=== PATIENT | female | born 1960 | race American Indian/Alaskan Native ===

== ENCOUNTER 2020-01-22 21:58 | Emergency (ER) | payer MEDICAID ==
--- NOTE | 2020-01-22 22:30 | Event Note ---
ED Screening Note Date of service: 01/22/20 Time: 22:26 ED Screening Note: This is a 59 y.o. F. that presents to the ER with right ankle pain. Patient states she twisted her ankle in her driveway while getting out of her car. Reports pain to lateral ankle when she attempt to apply weight. PMH of asthma, DM2 insulin dependent, & HTN This initial assessment/diagnostic orders/clinical plan/treatment(s) is/are subject to change based on patients health status, clinical progression and re-assessment by fellow clinical providers in the ED. Further treatment and workup at subsequent clinical providers discretion. Patient/guardian urged not to elope from the ED as their condition may be serious if not clinically assessed and managed. Initial orders include: XR right ankle
--- NOTE | 2020-01-22 23:00 | XRay Report ---
RIGHT ANKLE 3 VIEWS INDICATION: pain s/p fall, r/o fx. COMPARISON: No relevant prior imaging study available. FINDINGS: There is a minimally displaced fracture at the base of the fifth metatarsal. No additional fractures are identified. There is mild soft tissue swelling adjacent to the fracture. There is mild osteoarthr osis. IMPRESSION: 1. Minimally displaced fracture at the base of the fifth metatarsal. Signer Name: Aleks Toure MD Signed: 01/22/2020 10:55 PM Workstation Name: [id number]
--- NOTE | 2020-01-22 23:20 | Emergency Department Report ---
ED Lower Extremity HPI - General Chief Complaint: Extremity Injury, Lower Stated Complaint: FALL INJURY RT ANKLE Time Seen by Provider: 01/22/20 22:26 Source: patient Mode of arrival: Wheelchair Limitations: Physical Limitation - History of Present Illness Initial Comments: 59-year-old female was getting out of her truck on wet grass with some slippery shoes lost her footing resulting in a inversion type of maneuver resulting in pain and swelling to the lateral aspect of her right foot. Pain worse with movement and ambulation MD Complaint: ankle injury, foot injury -: Gradual Injury: Foot: Right Type of Injury: inversion Place: home Severity: mild, moderate Worsens With: weight bearing, movement, palpation Associated Symptoms: swelling, unable to bear weight - Related Data Previous Rx's Medication Instructions Recorded Last Taken Type traMADoL [Ultram] 50 mg PO Q6HR PRN #14 tablet 01/22/20 Unknown Rx Allergies Allergy/AdvReac Type Severity Reaction Status Date / Time No Known Allergies Allergy Verified 01/22/20 21:58 ED Review of Systems ROS: Stated complaint: FALL INJURY RT ANKLE Other details as noted in HPI Comment: All other systems reviewed and negative ED Past Medical Hx - Past Medical History Previous Medical History?: Yes Hx Hypertension: Yes Hx Diabetes: Yes Hx Asthma: Yes - Surgical History Past Surgical History?: Yes Additional Surgical History: Gastric Bypass, Right knee, Right shoulder, Hardware Left ankle - Social History Smoking Status: Current Every Day Smoker Substance Use Type: None - Medications Home Medications: Home Medications Medication Instructions Recorded Confirmed Last Taken Type traMADoL [Ultram] 50 mg PO Q6HR PRN #14 tablet 01/22/20 Unknown Rx ED Physical Exam - General Limitations: Physical Limitation - Head Head exam: Present: atraumatic, normocephalic - Neck Neck exam: Present: normal inspection - Respiratory Respiratory exam: Present: normal lung sounds bilaterally. Absent: respiratory distress - Cardiovascular Cardiovascular Exam: Present: regular rate, normal rhythm. Absent: systolic murmur, diastolic murmur, rubs, gallop - Expanded Lower Extremity Exam Right Foot/Toe exam: Present: tenderness, swelling, ecchymosis, tenderness at base of 5th metatarsal Neuro vascular tendon exam: Present: no vascular compromise, motor deficit. Absent: pulse deficit, abnormal cap refill 1 - Swelling ecchymosis and tenderness - Back Exam Back exam: Present: normal inspection ED Course Vital Signs 01/22/20 22:00 Temperature 99.0 F Pulse Rate 98 H Respiratory 18 Rate Blood Pressure 157/87 O2 Sat by Pulse 100 Oximetry - Procedure Description Procedures done: Right foot Carl fracture placed in a posterior short leg splint and crutches ED Lower Extremity MDM - Radiology Data Radiology results: report reviewed [facility] [address] [place] [address] XRay Report Signed Patient: DEIM BALDERAS MR#: [id number] : 1960 Acct:[id number] Age/Sex: 59 / F ADM Date: 01/22/20 Loc: ED Attending Dr: Ordering Physician: PAVAN MCGRATH Date of Service: 01/22/20 Procedure(s): XR ankle 3+V RT Accession Number(s): [id number] cc: PAVAN MCGRATH Fluoro Time In Minutes: RIGHT ANKLE 3 VIEWS INDICATION: pain s/p fall, r/o fx. COMPARISON: No relevant prior imaging study available. FINDINGS: There is a minimally displaced fracture at the base of the fifth metatarsal. No additional fractures are identified. There is mild soft tissue swelling adjacent to the fracture. There is mild osteoarthrosis. IMPRESSION: 1. Minimally displaced fracture at the base of the fifth metatarsal. Signer Name: Aleks Toure MD Signed: 01/22/2020 10:55 PM Workstation Name: [id number] Transcribed By: ANTHONY Dictated By: Aleks Toure MD Electronically Authenticated By: Aleks Toure MD Signed Date/Time: 01/22/202254 DD/ 52 Critical care attestation.: If time is entered above; I have spent that time in minutes in the direct care of this critically ill patient, excluding procedure time. ED Disposition Clinical Impression: Carl fracture Disposition: DC-01 TO HOME OR SELFCARE Is pt being admited?: No Does the pt Need Aspirin: No Condition: Stable Instructions: Foot Fracture in Adults (ED), Crutch Instructions (ED) Prescriptions: traMADoL [Ultram] 50 mg PO Q6HR PRN #14 tablet PRN Reason: Pain Referrals: MIKE RUCKER MD [Staff Physician] - 3-5 Days
[2020-01-23] MEDS ORDERED: oxyCODONE /ACETAMINOPHEN 5-325MG TAB ONE (00:26)
[2020-01-23 00:39] VITALS: BP 138/70
== END 2020-01-23 00:38 | disposition home or self-care (01) ==
LOC: ED 21:58
DX: S92.351A Displaced fracture of fifth metatarsal bone, right foot, initial encounter for closed fracture (principal); I10 Essential (primary) hypertension; E11.9 Type 2 diabetes mellitus without complications; J45.909 Unspecified asthma, uncomplicated; F17.200 Nicotine dependence, unspecified, uncomplicated; Z98.890 Other specified postprocedural states; W19.XXXA Unspecified fall, initial encounter; Y93.89 Activity, other specified; Y92.89 Other specified places as the place of occurrence of the external cause; Y99.8 Other external cause status

== ENCOUNTER 2020-09-12 16:14 | Emergency (ER) | payer MEDICAID ==
[2020-09-13] MEDS ORDERED: predniSONE 20 MG TAB PO ONE (00:30)
[2020-09-13] MEDS ORDERED: IPRATROPIUM/ALBUTEROL SULFATE 3 ML AMPUL.NEB IH ONE (00:30)
[2020-09-13] MEDS ORDERED: HYDROcodone/ACETAMINOPHEN 5-325 MG TAB PO ONE (00:30)
[2020-09-13] MEDS ORDERED: ONDANSETRON 4 MG ODT TAB PO ONE (00:30)
[2020-09-13 01:03] LABS: Basophils % (Auto) 0.2 % (0.0-1.8); Hematocrit 28.9 % (30.3-42.9); Lymphocytes # (Auto) 2.7 K/mm3 (1.2-5.4); Lymphocytes % (Auto) 21.5 % (13.4-35.0); Mean Corpuscular HGB Conc 31 % (30-34); Mean Corpuscular Volume 78 fl (79-97); Monocytes # (Auto) 0.9 K/mm3 (0.0-0.8); Monocytes % (Auto) 7.1 % (0.0-7.3); Platelet Count 455 K/mm3 (140-440); Red Cell Distribution Width 16.5 % (13.2-15.2)
[2020-09-13 01:29] LABS: Alanine Aminotransferase 22 units/L (7-56); Albumin 3.5 g/dL (3.9-5); Blood Urea Nitrogen 19 mg/dL (7-17); Calcium 9.5 mg/dL (8.4-10.2); Hemolysis Index 9
--- NOTE | 2020-09-13 01:33 | XRay Report ---
CHEST 1 VIEW INDICATION: dyspnea, cough. COMPARISON: None. FINDINGS: Support devices: None. Heart: Normal. Lungs/Pleura: No acute pulmonary or pleural findings. IMPRESSION: 1. No acute findings. Signer Name: Aleks Toure MD Signed: 09/13/2020 1:28 AM Workstation Name: [id number]
[2020-09-13 01:34] LABS: BUN/Creatinine Ratio 27
--- NOTE | 2020-09-13 02:11 | Emergency Department Report ---
- General Chief Complaint: Dyspnea/Respdistress Stated Complaint: COLD SX Source: patient Mode of arrival: Ambulatory Limitations: No Limitations - History of Present Illness Initial Comments: Patient is a 59-year-old -Monegasque female with a history of chronic osteoarthritis, hypertension, chronic low back pain, gft-hydooye-uybtymoqr diabetes and asthma who presents to the ED with complaint of acute onset persistent nasal and sinus congestion, frontal sinus pressure, sore throat, persistent cough with wheezing intermittently for the last 2 weeks, worse in the last 3 days. Patient states that her son had similar symptoms initially and her mother who lives with her also has had similar symptoms. Patient denies chest pain, dizziness, syncope, fever, chills, nausea, vomiting, abdominal pain, diarrhea, dysuria, urinary frequency and urgency or change in vision or palpitations. MD Complaint: cough, rhinorrhea, nasal congestion, sinus pain -: Gradual, week(s) (2) Severity: moderate Severity scale (0 -10): 5 Quality: sharp, aching Consistency: constant Improves With: nothing Worsens With: nothing Context: sick contacts Associated Symptoms: denies other symptoms, headache, rhinorrhea, nasal congestion, sore throat, cough, shortness of breath. denies: fever, chills, myalgias, diaphoresis, stiff neck, chest pain, abdominal pain, nausea, vomiting, diarrhea, dysuria, rash, confusion, right sweats, weight loss, epistaxis, hoarseness, ear pain Treatments Prior to Arrival: "cold medicine" - Related Data Previous Rx's Medication Instructions Recorded Last Taken Type traMADoL [Ultram] 50 mg PO Q6HR PRN #14 tablet 01/22/20 Unknown Rx Amoxicillin/Potassium Clav 1 each PO Q12H #20 tablet 09/13/20 Unknown Rx [Augmentin 875-125 Tablet] Benzonatate [Tessalon Perles] 100 mg PO Q8HR #30 capsule 09/13/20 Unknown Rx Cetirizine HCl [Zyrtec 10mg tab] 10 mg PO DAILY #30 tablet 09/13/20 Unknown Rx Ibuprofen [Motrin] 600 mg PO Q8H PRN #24 tablet 09/13/20 Unknown Rx Prednisone [predniSONE 10 mg 10 mg PO .TAPER #21 tab.ds.pk 09/13/20 Unknown Rx (6-Day Pack, 21 Tabs)] Allergies Allergy/AdvReac Type Severity Reaction Status Date / Time No Known Allergies Allergy Verified 01/22/20 21:58 ED Review of Systems ROS: Stated complaint: COLD SX Other details as noted in HPI Constitutional: denies: chills, fever Eyes: denies: eye pain, eye discharge, vision change ENT: throat pain, congestion, other (Nasal and sinus congestion). denies: ear pain Respiratory: cough, shortness of breath, wheezing Cardiovascular: denies: chest pain, palpitations Endocrine: no symptoms reported Gastrointestinal: denies: abdominal pain, nausea, diarrhea Genitourinary: denies: urgency, dysuria, discharge Musculoskeletal: denies: back pain, joint swelling, arthralgia Skin: denies: rash, lesions Neurological: denies: headache, weakness, paresthesias Psychiatric: denies: anxiety, depression Hematological/Lymphatic: denies: easy bleeding, easy bruising ED Past Medical Hx - Past Medical History Hx Hypertension: Yes Hx Diabetes: Yes Hx Asthma: Yes - Surgical History Past Surgical History?: Yes Additional Surgical History: Gastric Bypass, Right knee, Right shoulder, Hardware Left ankle - Social History Smoking Status: Current Every Day Smoker Substance Use Type: None - Medications Home Medications: Home Medications Medication Instructions Recorded Confirmed Last Taken Type traMADoL [Ultram] 50 mg PO Q6HR PRN #14 tablet 01/22/20 Unknown Rx Amoxicillin/Potassium Clav 1 each PO Q12H #20 tablet 09/13/20 Unknown Rx [Augmentin 875-125 Tablet] Benzonatate [Tessalon Perles] 100 mg PO Q8HR #30 capsule 09/13/20 Unknown Rx Cetirizine HCl [Zyrtec 10mg tab] 10 mg PO DAILY #30 tablet 09/13/20 Unknown Rx Ibuprofen [Motrin] 600 mg PO Q8H PRN #24 tablet 09/13/20 Unknown Rx Prednisone [predniSONE 10 mg 10 mg PO .TAPER #21 tab.ds.pk 09/13/20 Unknown Rx (6-Day Pack, 21 Tabs)] ED Physical Exam - General Limitations: No Limitations General appearance: alert, in no apparent distress - Head Head exam: Present: atraumatic, normocephalic, normal inspection - Eye Eye exam: Present: normal appearance, PERRL, EOMI Pupils: Present: normal accommodation - ENT ENT exam: Present: normal orophraynx, mucous membranes moist, TM's normal bilaterally, normal external ear exam, other (Grossly congested nasal passages with palpable frontal sinus tenderness) - Neck Neck exam: Present: normal inspection, full ROM. Absent: tenderness, lymphadenopathy - Respiratory Respiratory exam: Present: wheezes (Moderately diffuse coarse wheezes througho ut). Absent: respiratory distress, chest wall tenderness, accessory muscle use, decreased breath sounds - Cardiovascular Cardiovascular Exam: Present: regular rate, normal rhythm, normal heart sounds. Absent: systolic murmur, diastolic murmur, rubs, gallop - GI/Abdominal GI/Abdominal exam: Present: soft, normal bowel sounds. Absent: tenderness, guarding, rebound, hyperactive bowel sounds, hypoactive bowel sounds - Extremities Exam Extremities exam: Present: normal inspection, full ROM, normal capillary refill - Back Exam Back exam: Present: normal inspection, full ROM, tenderness (Palpable lumbosacral paraspinal musculoskeletal tenderness), muscle spasm, paraspinal tenderness. Absent: vertebral tenderness - Neurological Exam Neurological exam: Present: alert, oriented X3, CN II-XII intact, normal gait, reflexes normal - Psychiatric Psychiatric exam: Present: normal affect, normal mood - Skin Skin exam: Present: warm, dry, intact, normal color. Absent: rash ED Course Vital Signs 09/12/20 09/13/20 09/13/20 16:59 00:54 01:15 Temperature 97.8 F Pulse Rate 93 H Pulse Rate [ 80 Bilateral Throughout] Respiratory 18 18 Rate Respiratory 18 Rate [Bilateral Throughout] Blood Pressure 134/69 [Right] O2 Sat by Pulse 96 Oximetry ED Medical Decision Making - Lab Data Result diagrams: 09/13/20 00:47 09/13/20 00:47 - Radiology Data Radiology results: report reviewed, image reviewed Findings [facility] [address] [place] [address] XRay Report Signed Patient: DEMI BALDERAS MR#: [id number] : 1960 Acct:[id number] Age/Sex: 59 / F ADM Date: 09/12/20 Loc: ED Attending Dr: Ordering Physician: ALONSO HONEYCUTT Date of Service: 09/13/20 Procedure(s): XR chest 1V ap Accession Number(s): [id number] cc: ALONSO HONEYCUTT Fluoro Time In Minutes: CHEST 1 VIEW INDICATION: dyspnea, cough. COMPARISON: None. FINDINGS: Support devices: None. Heart: Normal. Lungs/Pleura: No acute pulmonary or pleural findings. IMPRESSION: 1. No acute findings. Signer Name: Aleks Toure MD Signed: 09/13/2020 1:28 AM Workstation Name: [id number] Transcribed By: SW Dictated By: Aleks Toure MD Electronically Authenticated By: Aleks Toure MD Signed Date/Time: 09/13/20127 DD/ 7 TD/TT: - Medical Decision Making This is a 59-year-old -Monegasque female with a history of chronic osteoarthritis, hypertension, chronic low back pain, tin-izfdugr-hcimycrio diabetes and asthma who presents to the ED with complaint of acute onset persis tent nasal and sinus congestion, frontal sinus pressure, sore throat, persistent cough with wheezing intermittently for the last 2 weeks, worse in the last 3 days. Patient states that her son had similar symptoms initially and her mother who lives with her also has had similar symptoms. In the ED, patient is alert and oriented x3 and is not in distress. Patient was given DuoNeb treatment in the ED as well as oral steroids. Chest x-ray showed no acute cardiopulmonary abnormalities or pneumonitis. Lab test results were reviewed and are all nonactionable. Patient was discharged home on medications and advised to follow-up with her primary care physician in 7 to 10 days for reevaluation or return to the ED immediately if symptoms get worse. - Differential Diagnosis Bronchitis; asthma; sinusitis; URI; pneumonia Critical care attestation.: If time is entered above; I have spent that time in minutes in the direct care of this critically ill patient, excluding procedure time. ED Disposition Clinical Impression: Acute bacterial sinusitis, Acute upper respiratory infection, Acute bronchitis with asthma Disposition: - TO HOME OR SELFCARE Is pt being admited?: No Does the pt Need Aspirin: No Condition: Stable Instructions: Acute Bronchitis (ED), Acute Bacterial Rhinosinusitis (ED), Upper Respiratory Infection (ED), Asthma (ED) Additional Instructions: All lab test results were reviewed and are all nonactionable. Chest x-ray shows no acute cardiopulmonary abnormalities or pneumonitis. Therefore take medications with food, drink plenty of fluids and follow-up with your primary care physician in 7 to 10 days for reevaluation. Return to the ED immediately if symptoms get worse. Prescriptions: Amoxicillin/Potassium Clav [Augmentin 875-125 Tablet] 1 each PO Q12H #20 tablet Ibuprofen [Motrin] 600 mg PO Q8H PRN #24 tablet PRN Reason: Pain Prednisone [predniSONE 10 mg (6-Day Pack, 21 Tabs)] 10 mg PO .TAPER #21 tab.ds.pk Benzonatate [Tessalon Perles] 100 mg PO Q8HR #30 capsule Cetirizine HCl [Zyrtec 10mg tab] 10 mg PO DAILY #30 tablet Referrals: [facility] [Provider Group] - 3-5 Days Time of Disposition: 02:14 Print Language: AZERBAIJANI
[2020-09-13 02:36] VITALS: BP 148/92
== END 2020-09-13 02:35 | disposition home or self-care (01) ==
LOC: ED 16:14
DX: J01.80 Other acute sinusitis (principal); B96.89 Other specified bacterial agents as the cause of diseases classified elsewhere; J06.9 Acute upper respiratory infection, unspecified; J45.998 Other asthma; I10 Essential (primary) hypertension; E11.9 Type 2 diabetes mellitus without complications; F17.200 Nicotine dependence, unspecified, uncomplicated; Z79.899 Other long term (current) drug therapy; Z98.890 Other specified postprocedural states
CPT/HCPCS: 36415; 71045; 80053; 84484; 85025; 94640; 99284; J7512; 94644; Q0162

== ENCOUNTER 2021-04-10 23:05 | Emergency (ER) | payer MEDICAID ==
[2021-04-11 01:18] VITALS: BP 161/96
[2021-04-11] MEDS ORDERED: NAPROXEN 500 MG TAB PO ONE (02:57)
--- NOTE | 2021-04-11 03:53 | XRay Report ---
THORACIC SPINE 2 VIEWS INDICATION / CLINICAL INFORMATION: pain s/p mfall COMPARISON: None available. FINDINGS: BONES / JOINT(S): No acute fracture or subluxation. Mild degenerative disc disease. SOFT TISSUES: No significant abnormality. ADDITIONAL FINDINGS: None. Signer Name: Jamar Orozco MD Signed: 04/11/2021 3:49 AM Workstation Name: [id number]
--- NOTE | 2021-04-11 03:54 | XRay Report ---
LUMBAR SPINE 2 VIEWS INDICATION / CLINICAL INFORMATION: pain s/p fall COMPARISON: None available. FINDINGS: BONES / JOINT(S): No acute fracture or subluxation. No significant arthritis. SOFT TISSUES: No significant abnormality. ADDITIONAL FINDINGS: None. Signer Name: Jamar Orozco MD Signed: 04/11/2021 3:50 AM Workstation Name: [id number]
--- NOTE | 2021-04-11 04:13 | Cat Scan Report ---
CT head without contrast INDICATION : fall with pain. TECHNIQUE: Axial imaging performed from the skull apex through the skull base without the use of con trast. All CT scans at this location are performed using CT dose reduction for ALARA by means of aut omated exposure control. COMPARISON: None FINDINGS: Parenchyma: No mass, stroke or hemorrhage. Ventricles: Ventricles are normal in size and appear symmetric. Soft tissues: Soft tissues including the orbits appear normal. Bones: No acute osseous abnormality. Sinuses: Sinuses and mastoid air cells are clear. IMPRESSION: No acute abnormality. Signer Name: Jamar Orozco MD Signed: 04/11/2021 4:09 AM Workstation Name: [id number]
--- NOTE | 2021-04-11 04:16 | Cat Scan Report ---
CT cervical spine wo con INDICATION: fall with pain. TECHNIQUE: All CT scans at this location are performed using the following dose modulation technique: Automated exposure control. CONTRAST: None. COMPARISON: None available. FINDINGS: Satisfactory alignment without vertebral compression. Degenerative disc disease is greatest at C6-C7 where changes are mild/moderate. No soft tissue abnormality. IMPRESSION: 1. Negative for bony injury. 2. Degenerative disc disease greatest at C6-C7. Signer Name: Jamar Orozco MD Signed: 04/11/2021 4:12 AM Workstation Name: [id number]
--- NOTE | 2021-04-11 05:09 | Emergency Department Report ---
ED Fall HPI - General Chief Complaint: Back Pain/Injury Stated Complaint: FELL DOWN STAIRS/BACK PAIN Time Seen by Provider: 04/11/21 02:36 Source: patient Mode of arrival: Stretcher Limitations: No Limitations - History of Present Illness Initial Comments: This is a 60-year-old female nontoxic, well nourished in appearance, no acute signs of distress presents to the ED with c/o of neck, mid back, headache, lower back pain status post fall that occurred prior to arrival. Patient was brought by EMS which EMS stated had a trip and fall from 1 stair. When examined patient patient stated she had a fall between 9 -10 stairs. Patient stated had a mechanical trip and fall. Patient otherwise denies any other symptoms or complaints. Denies any loss of consciousness. Patient denies any radiation of pain. Patient denies any other injuries or trauma. Denies any bladder or bowel instability. Patient denies any urinary symptoms. Denies any fever, chills, nausea, vomiting, headache, stiff neck, chest pain or shortness of breath. Patient denies any numbness or tingling. Denies any allergies. MD Complaint: fall -: Last night Fall From: down stairs (#) (9-10) When Fall Occurred: 1 hour [employer] Fall Witnessed: no Place Fall Occurred: home Loss of Consciousness: none Prolonged Down Time?: no Symptoms Prior to Fall: none Location: head, neck, back Severity: mild Severity scale (0 -10): 3 Quality: aching Context: tripped/slipped Associated Symptoms: headache, neck pain. denies: numbness, weakness, chest paint, shortness of breath, abdominal pain, hematuria, unable to walk, lightheaded, vertigo, confusion - Related Data Previous Rx's Medication Instructions Recorded Last Taken Type traMADoL [Ultram] 50 mg PO Q6HR PRN #14 tablet 01/22/20 Unknown Rx Amoxicillin/Potassium Clav 1 each PO Q12H #20 tablet 09/13/20 Unknown Rx [Augmentin 875-125 Tablet] Benzonatate [Tessalon Perles] 100 mg PO Q8HR #30 capsule 09/13/20 Unknown Rx Cetirizine HCl [Zyrtec 10mg tab] 10 mg PO DAILY #30 tablet 09/13/20 Unknown Rx Ibuprofen [Motrin] 600 mg PO Q8H PRN #24 tablet 09/13/20 Unknown Rx Prednisone [predniSONE 10 mg 10 mg PO .TAPER #21 tab.ds.pk 09/13/20 Unknown Rx (6-Day Pack, 21 Tabs)] Naproxen 500 mg PO Q12H PRN #12 tablet 04/11/21 Unknown Rx Allergies Allergy/AdvReac Type Severity Reaction Status Date / Time No Known Allergies Allergy Verified 01/22/20 21:58 ED Review of Systems ROS: Stated complaint: FELL DOWN STAIRS/BACK PAIN Other details as noted in HPI Comment: All other systems reviewed and negative Constitutional: denies: chills, fever Eyes: denies: eye pain, eye discharge, vision change ENT: denies: ear pain, throat pain Respiratory: denies: cough, shortness of breath, wheezing Cardiovascular: denies: chest pain, palpitations Endocrine: no symptoms reported Gastrointestinal: denies: abdominal pain, nausea, diarrhea Genitourinary: denies: urgency, dysuria, discharge Musculoskeletal: back pain. denies: joint swelling, arthralgia Skin: denies: rash, lesions Neurological: headache. denies: weakness, numbness, paresthesias, confusion, abnormal gait, vertigo Psychiatric: denies: anxiety, depression Hematological/Lymphatic: denies: easy bleeding, easy bruising ED Past Medical Hx - Past Medical History Hx Hypertension: Yes Hx Diabetes: Yes Hx Asthma: Yes - Surgical History Additional Surgical History: Gastric Bypass, Right knee, Right shoulder, Hardware Left ankle - Social History Smoking Status: Current Every Day Smoker - Medications Home Medications: Home Medications Medication Instructions Recorded Confirmed Last Taken Type traMADoL [Ultram] 50 mg PO Q6HR PRN #14 tablet 01/22/20 Unknown Rx Amoxicillin/Potassium Clav 1 each PO Q12H #20 tablet 09/13/20 Unknown Rx [Augmentin 875-125 Tablet] Benzonatate [Tessalon Perles] 100 mg PO Q8HR #30 capsule 09/13/20 Unknown Rx Cetirizine HCl [Zyrtec 10mg tab] 10 mg PO DAILY #30 tablet 09/13/20 Unknown Rx Ibuprofen [Motrin] 600 mg PO Q8H PRN #24 tablet 09/13/20 Unknown Rx Prednisone [predniSONE 10 mg 10 mg PO .TAPER #21 tab.ds.pk 09/13/20 Unknown Rx (6-Day Pack, 21 Tabs)] Naproxen 500 mg PO Q12H PRN #12 tablet 04/11/21 Unknown Rx ED Physical Exam - General Limitations: No Limitations General appearance: alert, in no apparent distress - Head Head exam: Present: atraumatic, normocephalic - Eye Eye exam: Present: normal appearance, PERRL, EOMI - ENT ENT exam: Present: normal exam, normal orophraynx - Neck Neck exam: Present: normal inspection, full ROM. Absent: tenderness, meningismus, lymphadenopathy - Respiratory Respiratory exam: Present: normal lung sounds bilaterally. Absent: respiratory distress, wheezes, rales, rhonchi, stridor, chest wall tenderness, accessory muscle use, decreased breath sounds, prolonged expiratory - Cardiovascular Cardiovascular Exam: Present: regular rate, normal rhythm, normal heart sounds. Absent: bradycardia, tachycardia, irregular rhythm, systolic murmur, diastolic murmur, rubs, gallop - GI/Abdominal GI/Abdominal exam: Present: soft, normal bowel sounds. Absent: distended, tenderness, guarding, rebound, rigid, diminished bowel sounds - Extremities Exam Extremities exam: Present: normal inspection, full ROM, normal capillary refill. Absent: tenderness, joint swelling - Back Exam Back exam: Present: normal inspection, full ROM, paraspinal tenderness (Cervical, thoracic and lumbar paraspinal area). Absent: tenderness, CVA tenderness (R), CVA tenderness (L), muscle spasm, vertebral tenderness, rash noted - Expanded Back Exam Expanded Back exam: Absent: saddle anesthesia Back exam: Negative Straight Leg Raising: Left, Right - Neurological Exam Neurological exam: Present: alert, oriented X3, normal gait - Expanded Neurological Exam Expanded Patient oriented to: Present: person, place, time Cranial nerves: EOM's Intact: Normal, Facial Sensation: Normal Cerebellar function: Finger to Nose: Normal Upper motor neuron: Pronator Drift: Normal, Sensory Extinction: Normal Motor strength exam: RUE: 5, LUE: 5, RLE: 5, LLE: 5 Best Eye Response (Holt): (4) open spontaneously Best Motor Response (Holt): (6) obeys commands Best Verbal Response (Wayne): (5) oriented Wayne Total: 15 - Psychiatric Psychiatric exam: Present: normal affect, normal mood - Skin Skin exam: Present: warm, dry, intact, normal color. Absent: rash ED Course Vital Signs 04/11/21 01:16 Temperature 98.0 F Pulse Rate 73 Respiratory 18 Rate Blood Pressure 161/96 O2 Sat by Pulse 100 Oximetry - Reevaluation(s) Reevaluation #1: 04/11/21 05:11 Patient is speaking in full sentences with no signs of distress noted. ED Medical Decision Making - Radiology Data [address] [address] Cat Scan Report Signed Patient: DEMI BALDERAS MR#: [id number] : 1960 Acct:[id number] Age/Sex: 60 / F ADM Date: 04/10/21 Loc: ED Attending Dr: Ordering Physician: LEAH HAN NP Date of Service: 04/11/21 Procedure(s): CT head/brain wo con Accession Number(s): [id number] cc: LEAH HAN NP CT head without contrast INDICATION : fall with pain. TECHNIQUE: Axial imaging performed from the skull apex through the skull base without the use of contrast. All CT scans at this location are performed using CT dose reduction for ALARA by means of automated exposure control. COMPARISON: None FINDINGS: Parenchyma: No mass, stroke or hemorrhage. Ventricles: Ventricles are normal in size and appear symmetric. Soft tissues: Soft tissues including the orbits appear normal. Bones: No acute osseous abnormality. Sinuses: Sinuses and mastoid air cells are clear. IMPRESSION: No acute abnormality. Signer Name: Jamar Orozco MD Signed: 04/11/2021 4:09 AM Workstation Name: [id number] Transcribed By: ES Dictated By: Jamar Orozco MD Electronically Authenticated By: Jamar Orozco MD Signed Date/Time: 04/11/21408 DD/ 5 TD/TT: [address] [address] Cat Scan Report Signed Patient: DEMI BALDERAS MR#: [id number] : 1960 Acct:[id number] Age/Sex: 60 / F ADM Date: 04/10/21 Loc: ED Attending Dr: Ordering Physician: LEAH HAN NP Date of Service: 04/11/21 Procedure(s): CT cervical spine wo con Accession Number(s): [id number] cc: LEAH HAN NP CT cervical spine wo con INDICATION: fall with pain. TECHNIQUE: All CT scans at this location are performed using the following dose modulation technique: Automated exposure control. CONTRAST: None. COMPARISON: None available. FINDINGS: Satisfactory alignment without vertebral compression. Degenerative disc disease is greatest at C6-C7 where changes are mild/moderate. No soft tissue abnormality. IMPRESSION: 1. Negative for bony injury. 2. Degenerative disc disease greatest at C6-C7. Signer Name: Jamar Orozco MD Signed: 04/11/2021 4:12 AM Workstation Name: [id number] Transcribed By: OLGA Dictated By: Jamar Orozco MD Electronically Authenticated By: Jamar Orozco MD Signed Date/Time: 04/11/21411 DD/ 8 TD/TT: [address] [address] XRay Report Signed Patient: DEMI BALDERAS MR#: [id number] : 1960 Acct:[id number] Age/Sex: 60 / F ADM Date: 04/10/21 Loc: ED Attending Dr: Ordering Physician: LEAH HAN NP Date of Service: 04/11/21 Procedure(s): XR spine thoracic 2V Accession Number(s): [id number] cc: LEAH HAN NP Fluoro Time In Minutes: THORACIC SPINE 2 VIEWS INDICATION / CLINICAL INFORMATION: pain s/p mfall COMPARISON: None available. FINDINGS: BONES / JOINT(S): No acute fracture or subluxation. Mild degenerative disc disease. SOFT TISSUES: No significant abnormality. ADDITIONAL FINDINGS: None. Signer Name: Jamar Orozco MD Signed: 04/11/2021 3:49 AM Workstation Name: [id number] Transcribed By: OLGA Dictated By: Jamar Orozco MD Electronically Authenticated By: Jamar Orozco MD Signed Date/Time: 04/11/21348 DD/ 7 TD/TT: [address] [address] XRay Report Signed Patient: DEMI BALDERAS MR#: [id number] : 1960 Acct:[id number] Age/Sex: 60 / F ADM Date: 04/10/21 Loc: ED Attending Dr: Ordering Physician: LEAH HAN NP Date of Service: 04/11/21 Procedure(s): XR spine lumbosacral 2-3V Accession Number(s): [id number] cc: LEAH HAN NP Fluoro Time In Minutes: LUMBAR SPINE 2 VIEWS INDICATION / CLINICAL INFORMATION: pain s/p fall COMPARISON: None available. FINDINGS: BONES / JOINT(S): No acute fracture or subluxation. No significant arthritis. SOFT TISSUES: No significant abnormality. ADDITIONAL FINDINGS: None. Signer Name: Jamar Orozco MD Signed: 04/11/2021 3:50 AM Workstation Name: [id number] Transcribed By: ES Dictated By: Jamar Orozco MD Electronically Authenticated By: Jamar Orozco MD Signed Date/Time: 04/11/21349 DD/ 8 TD/TT: - Medical Decision Making This is a 60-year-old female that presents with fall. Patient is stable was examined by me. There is no spinal tenderness. There is no cauda equina syndrome during examination. No bladder or bowel instability. Neuro exam is unremarkable. Patient received naproxen in the ED which stated that her symptoms has resolved and subsided. Patient is discharged with naproxen. Patient was referred to Follow-up with a primary care doctor in 3-5 days or if symptoms worsen and continue return to emergency room as soon as possible. At time of discharge, the patient does not seem toxic or ill in appearance. No acute signs of distress noted. Patient agrees to discharge treatment plan of care. No further questions noted by the patient. This chart is dictated with using [employer] Critical care attestation.: If time is entered above; I have spent that time in minutes in the direct care of this critically ill patient, excluding procedure time. ED Disposition Clinical Impression: Fall Qualifiers: Encounter type: initial encounter Qualified Code(s): W19.XXXA - Unspecified fall, initial encounter Head contusion Qualifiers: Encounter type: initial encounter Contusion of head detail: scalp Qualified Code(s): S00.03XA - Contusion of scalp, initial encounter Cervical muscle strain Qualifiers: Encounter type: initial encounter Qualified Code(s): S16.1XXA - Strain of muscle, fascia and tendon at neck level, initial encounter Low back strain Qualifiers: Encounter type: initial encounter Qualified Code(s): S39.012A - Strain of m uscle, fascia and tendon of lower back, initial encounter Disposition: TO HOME OR SELFCARE Is pt being admited?: No Does the pt Need Aspirin: No Condition: Stable Instructions: Fall Prevention in the Home, Adult, [id number] Additional Instructions: Follow-up with a primary care doctor in 3-5 days or if symptoms worsen and continue return to emergency room as soon as possible. Prescriptions: Naproxen 500 mg PO Q12H PRN #12 tablet PRN Reason: Pain , Severe (7-10) Referrals: PRIMARY MD ANIRUDH [Primary Care Provider] - 3-5 Days SIMON DAVIS MD [Staff Physician] - 3-5 Days Time of Disposition: 05:14
== END 2021-04-11 05:28 | disposition home or self-care (01) ==
LOC: ED 23:05
DX: S16.1XXA Strain of muscle, fascia and tendon at neck level, initial encounter (principal); S39.012A Strain of muscle, fascia and tendon of lower back, initial encounter; S00.03XA Contusion of scalp, initial encounter; I10 Essential (primary) hypertension; E11.9 Type 2 diabetes mellitus without complications; J45.909 Unspecified asthma, uncomplicated; Z79.899 Other long term (current) drug therapy; F17.200 Nicotine dependence, unspecified, uncomplicated; W19.XXXA Unspecified fall, initial encounter; Y93.89 Activity, other specified; Y92.89 Other specified places as the place of occurrence of the external cause; Y99.8 Other external cause status
CPT/HCPCS: 70450; 72070; 72100; 72125

== ENCOUNTER 2021-08-02 18:26 | Inpatient (IN) | payer MEDICAID ==
[2021-08-02] MEDS ORDERED: FAMOTIDINE 20 MG/2 ML INJ IV ONE (21:23)
[2021-08-02] MEDS ORDERED: SODIUM CHLORIDE 0.9% 1000 ML 1,000 ML IV ONE (21:23)
[2021-08-02] MEDS ORDERED: ONDANSETRON 4 MG/2 ML INJ IV ONE (21:23)
--- NOTE | 2021-08-02 21:26 | Event Note ---
ED Screening Note Date of service: 08/02/21 Time: 21:24 ED Screening Note: The patient is a 60-year-old -[place] female with a history of [id number] diabetes who presents to the ED with complaint of acute onset persistent generalized weakness, lack of appetite, nausea, vomiting, diarrhea and epigastric pain for the last 1 week, worse in the last 2 days. Patient states that she has been able to tolerate fluids including water and fruit juice but has not been able to eat anything solid because of lack of appetite. Patient states that she is unable to walk because of bilateral lower extremity fatigue. Patient denies dizziness, syncope, seizures, fever, chills, cough, dysuria, urinary frequency and urgency, back pain, chest pain or shortness of breath and sore throat or nasal and sinus congestion. This initial assessment/diagnostic orders/clinical plan/treatment(s) is/are subject to change based on patients health status, clinical progression and re- assessment by fellow clinical providers in the ED. Further treatment and workup at subsequent clinical providers discretion. Patient/guardian urged not to elope from the ED as their condition may be serious if not clinically assessed and managed. Initial orders include: CBC, CMP, UA, lipase, EKG, troponin, and chest x-ray
--- NOTE | 2021-08-02 22:02 | XRay Report ---
CHEST 1 VIEW INDICATION / CLINICAL INFORMATION: weakness. COMPARISON: 09/13/2020 FINDINGS: SUPPORT DEVICES: None. HEART / MEDIASTINUM: No significant abnormality. LUNGS / PLEURA: No significant pulmonary or pleural abnormality. No pneumothorax. ADDITIONAL FINDINGS: No significant additional findings. IMPRESSION: 1. No acute findings. Signer Name: Johnny Wiley MD Signed: 08/02/2021 9:58 PM Workstation Name: [id number]
[2021-08-02 22:03] LABS: Basophils % (Auto) 0.1 % (0.0-1.8); Hematocrit 27.6 % (30.3-42.9); Hemoglobin 9.1 gm/dl (10.1-14.3); Lymphocytes # (Auto) 1.6 K/mm3 (1.2-5.4); Mean Corpuscular HGB Conc 33 % (30-34); Mean Corpuscular Volume 100 fl (79-97); Monocytes # (Auto) 0.7 K/mm3 (0.0-0.8); Monocytes % (Auto) 7.2 % (0.0-7.3); Platelet Count 157 K/mm3 (140-440); Red Blood Count 2.77 M/mm3 (3.65-5.03)
[2021-08-02 22:17] LABS: Albumin 2.2 g/dL (3.9-5); Calcium 7.7 mg/dL (8.4-10.2)
[2021-08-02 22:40] LABS: Chol/HDL Ratio 11.66 %
[2021-08-03] MEDS ORDERED: SODIUM CHLORIDE 0.9% 1000 ML 1,000 ML IV ONE (01:47)
[2021-08-03] MEDS ORDERED: HYDROcodone/ACETAMINOPHEN 5-325 MG TAB PO ONE ×2 (02:13→07:10)
[2021-08-03] MEDS ORDERED: POTASSIUM CHLORIDE ER 20 MEQ TAB PO ONE (02:29)
--- NOTE | 2021-08-03 03:25 | Cat Scan Report ---
CT head without contrast INDICATION : Acute onset of "Generalized" weakness with N/V/D. TECHNIQUE: Axial imaging performed from the skull apex through the skull base without the use of con trast. All CT scans at this location are performed using CT dose reduction for ALARA by means of aut omated exposure control. COMPARISON: 04/11/2021 FINDINGS: Parenchyma: No mass, stroke or hemorrhage. Ventricles: Ventricles are normal in size and appear symmetric. Soft tissues: Soft tissues including the orbits appear normal. Bones: No acute osseous abnormality. Sinuses: Sinuses and mastoid air cells are clear. IMPRESSION: No acute abnormality. Signer Name: Jamar Orozco MD Signed: 08/03/2021 3:20 AM Workstation Name: [id number]
[2021-08-03] MEDS ORDERED: ONDANSETRON 4 MG/2 ML INJ ONE (03:27)
[2021-08-03] MEDS ORDERED: FAMOTIDINE 20 MG/2 ML INJ IV ONE ×2 (03:27→04:10)
--- NOTE | 2021-08-03 03:46 | Emergency Department Report ---
ED General Adult HPI - General Chief complaint: Weakness Stated complaint: WEAKNESS,AB PAIN Time Seen by Provider: 08/03/21 01:13 Source: patient Mode of arrival: Wheelchair Limitations: Physical Limitation - History of Present Illness Initial comments: Patient is a 60-year-old F Nigerien female with a past medical history of hypertension diabetes and asthma who is presenting with weakness and inability to walk. Patient states her legs are swollen over the last week. States she has something similar at the beginning of last month but that resolved spontaneously. States is not improving this time. States the legs are swollen and feels so heavy that she cannot walk. She also has some generalized weakness as well and has been very nauseous anytime she eats solid foods. She is able to drink fluids and broth. Denies diarrhea. States there is been no abdominal pain abdominal distention. States she does have a mild cough which is nonproduc tive but denies any shortness of breath. - Related Data Previous Rx's Medication Instructions Recorded Last Taken Type traMADoL [Ultram] 50 mg PO Q6HR PRN #14 tablet 01/22/20 Unknown Rx Amoxicillin/Potassium Clav 1 each PO Q12H #20 tablet 09/13/20 Unknown Rx [Augmentin 875-125 Tablet] Benzonatate [Tessalon Perles] 100 mg PO Q8HR #30 capsule 09/13/20 Unknown Rx Cetirizine HCl [Zyrtec 10mg tab] 10 mg PO DAILY #30 tablet 09/13/20 Unknown Rx Ibuprofen [Motrin] 600 mg PO Q8H PRN #24 tablet 09/13/20 Unknown Rx Prednisone [predniSONE 10 mg 10 mg PO .TAPER #21 tab.ds.pk 09/13/20 Unknown Rx (6-Day Pack, 21 Tabs)] Naproxen 500 mg PO Q12H PRN #12 tablet 04/11/21 Unknown Rx Allergies Allergy/AdvReac Type Severity Reaction Status Date / Time No Known Allergies Allergy Verified 01/22/20 21:58 ED Review of Systems ROS: Stated complaint: WEAKNESS,AB PAIN Other details as noted in HPI Comment: All other systems reviewed and negative ED Past Medical Hx - Past Medical History Hx Hypertension: Yes Hx Diabetes: Yes Hx Asthma: Yes - Surgical History Additional Surgical History: Gastric Bypass, Right knee, Right shoulder, Hardware Left ankle - Social History Smoking Status: Current Every Day Smoker - Medications Home Medications: Home Medications Medication Instructions Recorded Confirmed Last Taken Type traMADoL [Ultram] 50 mg PO Q6HR PRN #14 tablet 01/22/20 Unknown Rx Amoxicillin/Potassium Clav 1 each PO Q12H #20 tablet 09/13/20 Unknown Rx [Augmentin 875-125 Tablet] Benzonatate [Tessalon Perles] 100 mg PO Q8HR #30 capsule 09/13/20 Unknown Rx Cetirizine HCl [Zyrtec 10mg tab] 10 mg PO DAILY #30 tablet 09/13/20 Unknown Rx Ibuprofen [Motrin] 600 mg PO Q8H PRN #24 tablet 09/13/20 Unknown Rx Prednisone [predniSONE 10 mg 10 mg PO .TAPER #21 tab.ds.pk 09/13/20 Unknown Rx (6-Day Pack, 21 Tabs)] Naproxen 500 mg PO Q12H PRN #12 tablet 04/11/21 Unknown Rx ED Physical Exam - General Limitations: Physical Limitation General appearance: alert, in no apparent distress, other (Ill-appearing but nontoxic) - Head Head exam: Present: atraumatic, normocephalic - Eye Eye exam: Present: normal appearance, PERRL, EOMI - ENT ENT exam: Present: mucous membranes moist - Neck Neck exam: Present: normal inspection - Respiratory Respiratory exam: Present: normal lung sounds bilaterally. Absent: respiratory distress, wheezes, rales, rhonchi, stridor - Cardiovascular Cardiovascular Exam: Present: regular rate, normal rhythm, normal heart sounds. Absent: systolic murmur, diastolic murmur, rubs, gallop - GI/Abdominal GI/Abdominal exam: Present: soft, normal bowel sounds. Absent: distended, tenderness, guarding, rebound - Extremities Exam Extremities exam: Present: normal inspection, other (+1 lower extremity edema bilateral legs. Patient states that she has difficulty with raising both legs off the bed secondary to heaviness. Symptoms are symmetrical.) - Back Exam Back exam: Present: normal inspection - Neurological Exam Neurological exam: Present: alert, oriented X3 - Psychiatric Psychiatric exam: Present: normal affect, normal mood - Skin Skin exam: Present: warm, dry, intact, normal color. Absent: rash ED Course Vital Signs 08/02/21 21:21 Temperature 97.9 F Pulse Rate 109 H Respiratory 18 Rate Blood Pressure 109/75 O2 Sat by Pulse 100 Oximetry - Reevaluation(s) Reevaluation #1: 08/03/21 04:44 Patient with a very wide differential what would be causing her leg swelling leg heaviness and fatigue and nausea. Patient does have some abnormality of her liver enzymes. Also patient has some renal insufficiency is a possibility of nephrotic syndrome since the patient is a diabetic. Patient has a mild cough chest x-ray was negative however no CT patient does have a small pneumonia that is shown. COVID-19 infection has not been completely ruled out as a potential cause of the patient's symptoms as well. ED Medical Decision Making - Lab Data Result diagrams: 08/02/21 21:32 08/02/21 21:32 Lab Results 08/02/21 08/02/21 08/03/21 Range/Units 21:32 21:32 01:20 WBC 10.1 (4.5-11.0) K/mm3 RBC 2.77 L (3.65-5.03) M/mm3 Hgb 9.1 L (10.1-14.3) gm/dl Hct 27.6 L (30.3-42.9) % MCV 100 H (79-97) fl MCH 33 H (28-32) pg MCHC 33 (30-34) % RDW 20.0 H (13.2-15.2) % Plt Count 157 (140-440) K/mm3 Lymph % (Auto) 16.0 (13.4-35.0) % [place] % (Auto) 7.2 (0.0-7.3) % Eos % (Auto) 0.0 (0.0-4.3) % Baso % (Auto) 0.1 (0.0-1.8) % Lymph # (Auto) 1.6 (1.2-5.4) K/mm3 [place] # (Auto) 0.7 (0.0-0.8) K/mm3 Eos # (Auto) 0.0 (0.0-0.4) K/mm3 Baso # (Auto) 0.0 (0.0-0.1) K/mm3 Seg Neutrophils % 76.7 H (40.0-70.0) % Seg Neutrophils # 7.7 (1.8-7.7) K/mm3 Sodium 140 (137-145) mmol/L Potassium 3.0 L (3.6-5.0) mmol/L Chloride 107.5 H (98-107) mmol/L Carbon Dioxide 19 L (22-30) mmol/L Anion Gap 16 mmol/L BUN 29 H (7-17) mg/dL Creatinine 1.3 H (0.6-1.2) mg/dL Estimated GFR 50 ml/min BUN/Creatinine Ratio 22 % Glucose 119 H (65-100) mg/dL Calcium 7.7 L (8.4-10.2) mg/dL Total Bilirubin 1.40 H (0.1-1.2) mg/dL AST 69 H (5-40) units/L ALT 95 H (7-56) units/L Alkaline Phosphatase 261 H (35-129) units/L Troponin T 0.050 H 0.049 H (0.00-0.029) ng/mL Total Protein 5.3 L (6.3-8.2) g/dL Albumin 2.2 L (3.9-5) g/dL Albumin/Globulin Ratio 0.7 % Triglycerides 171 H (2-149) mg/dL Cholesterol 105 (50-199) mg/dL LDL Cholesterol Direct 21 L (50-130) mg/dL HDL Cholesterol 9 L (40-59) mg/dL Cholesterol/HDL Ratio 11.66 % Lipase 27 (13-60) units/L Urine Color (Yellow) Urine Turbidity (Clear) Urine pH (5.0-7.0) Ur Specific [place] (1.003-1.030) Urine Protein (Negative) mg/dL Urine Glucose (UA) (Negative) mg/dL Urine Ketones (Negative) mg/dL Urine Blood (Negative) Urine Nitrite (Negative) Urine Bilirubin (Negative) Urine Urobilinogen (<2.0) mg/dL Ur Leukocyte Esterase (Negative) Urine WBC (Auto) (0.0-6.0) /HPF Urine RBC (Auto) (0.0-6.0) /HPF U Epithel Cells (Auto) (0-13.0) /HPF Hyaline Casts /LPF Urine Mucus /HPF 08/03/21 Range/Units 04:24 WBC (4.5-11.0) K/mm3 RBC (3.65-5.03) M/mm3 Hgb (10.1-14.3) gm/dl Hct (30.3-42.9) % MCV (79-97) fl MCH (28-32) pg MCHC (30-34) % RDW (13.2-15.2) % Plt Count (140-440) K/mm3 Lymph % (Auto) (13.4-35.0) % [place] % (Auto) (0.0-7.3) % Eos % (Auto) (0.0-4.3) % Baso % (Auto) (0.0-1.8) % Lymph # (Auto) (1.2-5.4) K/mm3 [place] # (Auto) (0.0-0.8) K/mm3 Eos # (Auto) (0.0-0.4) K/mm3 Baso # (Auto) (0.0-0.1) K/mm3 Seg Neutrophils % (40.0-70.0) % Seg Neutrophils # (1.8-7.7) K/mm3 Sodium (137-145) mmol/L Potassium (3.6-5.0) mmol/L Chloride (98-107) mmol/L Carbon Dioxide (22-30) mmol/L Anion Gap mmol/L BUN (7-17) mg/dL Creatinine (0.6-1.2) mg/dL Estimated GFR ml/min BUN/Creatinine Ratio % Glucose (65-100) mg/dL Calcium (8.4-10.2) mg/dL Total Bilirubin (0.1-1.2) mg/dL AST (5-40) units/L ALT (7-56) units/L Alkaline Phosphatase (35-129) units/L Troponin T (0.00-0.029) ng/mL Total Protein (6.3-8.2) g/dL Albumin (3.9-5) g/dL Albumin/Globulin Ratio % Triglycerides (2-149) mg/dL Cholesterol (50-199) mg/dL LDL Cholesterol Direct (50-130) mg/dL HDL Cholesterol (40-59) mg/dL Cholesterol/HDL Ratio % Lipase (13-60) units/L Urine Color Ya (Yellow) Urine Turbidity Hazy (Clear) Urine pH 5.0 (5.0-7.0) Ur Specific [place] 1.023 (1.003-1.030) Urine Protein 30 mg/dl (Negative) mg/dL Urine Glucose (UA) Neg (Negative) mg/dL Urine Ketones Neg (Negative) mg/dL Urine Blood Neg (Negative) Urine Nitrite Neg (Negative) Urine Bilirubin Neg (Negative) Urine Urobilinogen 4.0 (<2.0) mg/dL Ur Leukocyte Esterase Neg (Negative) Urine WBC (Auto) 3.0 (0.0-6.0) /HPF Urine RBC (Auto) 5.0 (0.0-6.0) /HPF U Epithel Cells (Auto) < 1.0 (0-13.0) /HPF Hyaline Casts 1 /LPF Urine Mucus Few /HPF - Medical Decision Making Patient is a 60-year-old F [place]ien female who is presenting with leg swelling leg heaviness weakness and cough. Chest x-ray was nondiagnostic for pneumonia however on the CT of the abdomen pelvis patient does have a infiltrate. Urine does show proteins and the patient does have a history of diabetes and she likely has some nephrotic syndrome causing the leg swelling. Initially hydrated because of the prerenal azotemia however low-dose Lasix will be added. Patient started on Rocephin azithromycin will also check of her Covid test. Critical care attestation.: If time is entered above; I have spent that time in minutes in the direct care of this critically ill patient, excluding procedure time. ED Disposition Clinical Impression: Pneumonia, Suspected COVID-19 virus infection, Nephrotic syndrome Disposition: ADMITTED INPATIENT Is pt being admited?: Yes Does the pt Need Aspirin: No Condition: Stable Instructions: Bacterial Pneumonia (ED) Referrals: PRIMARY CAREMD [Primary Care Provider] - 3-5 Days Time of Disposition: 05:05
[2021-08-03] MEDS ORDERED: ONDANSETRON 4 MG/2 ML INJ IV ONE (04:10)
--- NOTE | 2021-08-03 04:39 | Cat Scan Report ---
CT ABDOMEN AND PELVIS WITHOUT CONTRAST INDICATION / CLINICAL INFORMATION: Edema, elevated LFT's. TECHNIQUE: Axial CT images were obtained through the abdomen and pelvis without IV contrast. All CT scans at this location are performed using CT dose reduction for ALARA by means of automated exposure control. COMPARISON: None available. FINDINGS: LOWER CHEST: Minimal patchy opacity left base medially. Small hiatal hernia. LIVER: Prominent diffuse fatty infiltration of the liver. GALLBLADDER: Surgically absent. BILE DUCTS: No significant abnormality. PANCREAS: No significant abnormality. SPLEEN: No significant abnormality. ADRENALS: No significant abnormality. RIGHT KIDNEY / URETER: No significant abnormality. LEFT KIDNEY / URETER: No significant abnormality. STOMACH / SMALL BOWEL: Previous gastric surgery. COLON: No significant abnormality. APPENDIX: No significant abnormality. PERITONEUM: Mild pelvic free fluid. No free air. No fluid collection. LYMPH NODES: No significant adenopathy. VASCULAR STRUCTURES: No significant abnormality. URINARY BLADDER: No significant abnormality. REPRODUCTIVE ORGANS: No significant abnormality. ADDITIONAL FINDINGS: None. SKELETAL SYSTEM: No significant abnormality. IMPRESSION: 1. Prominent fatty infiltration the liver. 2. Mild pneumonia left base. 3. Mild pelvic free fluid. Signer Name: Jamar Orozco MD Signed: 08/03/2021 4:34 AM Workstation Name: [id number]
[2021-08-03] MEDS ORDERED: cefTRIAXone/NS 1 GM/50 ML 1 GM/50 ML BAG IV ONE (04:46)
[2021-08-03] MEDS ORDERED: AZITHROMYCIN/NS 500 MG/250 ML 500 MG/250 ML BAG IV ONE (04:46)
[2021-08-03 04:51] LABS: Bilirubin,Urine NEG (Negative); Blood,Urine NEG (Negative); Color,Urine Amber (Yellow); Hyaline Casts,Urine 1 /LPF; Mucus,Urine FEW /HPF
[2021-08-03] MEDS ORDERED: FUROSEMIDE 20 MG/2 ML INJ IV ONE (05:04)
[2021-08-03] MEDS ORDERED: ACETAMINOPHEN 325 MG TAB PO PRN (06:14)
[2021-08-03] MEDS ORDERED: METOCLOPRAMIDE 10 MG/2 ML INJ IV PRN (06:14)
[2021-08-03] MEDS ORDERED: ONDANSETRON 4 MG/2 ML INJ IV PRN (06:14)
[2021-08-03] MEDS ORDERED: ALUM-MAG HYDROXIDE-SIMETHICONE 200-200-20MG/5ML ORAL LIQD 30 ML PO PRN (06:14)
[2021-08-03] MEDS ORDERED: SENNOSIDES 8.6 MG TAB PO PRN (06:14)
[2021-08-03] MEDS ORDERED: NALOXONE 0.4 MG/1 ML INJ IV PRN (06:14)
[2021-08-03] MEDS ORDERED: MAGNESIUM HYDROXIDE (MOM) ORAL LIQD UDC PO PRN (06:14)
[2021-08-03] MEDS ORDERED: SODIUM CHLORIDE 0.9% 1000 ML 1,000 ML IV SCH (06:15)
[2021-08-03] MEDS ORDERED: hydrALAZINE 20 MG/1 ML INJ IV PRN (06:18)
--- NOTE | 2021-08-03 06:28 | History and Physical Report ---
History of Present Illness Date of examination: 08/03/21 Date of admission: 08/03/21 Chief complaint: shortness of breath History of present illness: This is a 60-year-old F [place]bour[place] female who presents with generalized weakness, bilateral leg edema, and weakness with ambulation. Patient has a history of hypertension, diabetes, asthma, and tobacco use. Patient states her legs are swollen over the last week. States she has something similar at the beginning of last month but that resolved spontaneously. Patient also reports cough that is ongoing with mild mild shortness of breath. Patient is presently on room air and not in acute distress. States that her leg legs are swollen and feels so heavy that she cannot walk. Patient admits tobacco use about 3 sticks daily, but denies chronic alcohol use and illicit drug use. Patient also denies diarrhea, abdominal pain and abdominal distention, but reports chronic lower back pain. I reviewed patient medical record, medication record, and vital signs. Reviewed radiology tests-CT of the abdomen and pelvics done and revealed a prominent fatty infiltrate of the liver mild pneumonia left base and mild pelv ic free fluid. Past History Past Medical History: diabetes, hypertension, other (Obesity-status post gastric bypass) Past Surgical History: Other (Bariatric surgerygastric bypass) Social history: single, lives with family, smoking, full code. denies: alcohol abuse, prescription drug abuse, IV drug use Family history: no significant family history Medications and Allergies Allergies Allergy/AdvReac Type Severity Reaction Status Date / Time No Known Allergies Allergy Verified 01/22/20 21:58 Home Medications Medication Instructions Recorded Confirmed Last Taken Type traMADoL [Ultram] 50 mg PO Q6HR PRN #14 tablet 01/22/20 Unknown Rx Amoxicillin/Potassium Clav 1 each PO Q12H #20 tablet 09/13/20 Unknown Rx [Augmentin 875-125 Tablet] Benzonatate [Tessalon Perles] 100 mg PO Q8HR #30 capsule 09/13/20 Unknown Rx Cetirizine HCl [Zyrtec 10mg tab] 10 mg PO DAILY #30 tablet 09/13/20 Unknown Rx Ibuprofen [Motrin] 600 mg PO Q8H PRN #24 tablet 09/13/20 Unknown Rx Prednisone [predniSONE 10 mg 10 mg PO .TAPER #21 tab.ds.pk 09/13/20 Unknown Rx (6-Day Pack, 21 Tabs)] Naproxen 500 mg PO Q12H PRN #12 tablet 04/11/21 Unknown Rx Active Meds: Active Medications Acetaminophen (Acetaminophen 325 Mg Tab) 650 mg PO Q4H PRN PRN Reason: Pain MILD(1-3)/Fever >100.5/SIMPSON Al Hydrox/Mg Hydrox/Simethicone (Alum-Mag Hydroxide-Simethicone [id number]/5ml Oral Liqd 30 Ml) 30 ml PO Q4H PRN PRN Reason: Indigestion Hydralazine HCl (Hydralazine 20 Mg/1 Ml Inj) 5 mg IV Q4HR PRN PRN Reason: Hypertension Sodium Chloride (Nacl 0.9% 1000 Ml) 1,000 mls @ 42 mls/hr IV DIRECT CATY Ceftriaxone Sodium (Rocephin/Ns 2 Gm/100 Ml) 2 gm in 100 mls @ 200 mls/hr IV Q24H CATY; Protocol Azithromycin (Zithromax/Ns) 500 mg in 250 mls @ 250 mls/hr IV Q24H CATY; Protocol Magnesium Hydroxide (Magnesium Hydroxide (Mom) Oral Liqd Udc) 30 ml PO Q4H PRN PRN Reason: Constipation Metoclopramide HCl (Metoclopramide 10 Mg/2 Ml Inj) 10 mg IV Q6H PRN PRN Reason: Nausea And Vomiting Morphine Sulfate (Morphine 2 Mg/1 Ml Inj) 2 mg IV Q4H PRN PRN Reason: Pain, Moderate (4-6) Naloxone HCl (Naloxone 0.4 Mg/1 Ml Inj) 0.1 mg IV Q2MIN PRN PRN Reason: Res Rate </= 8 or 02 SAT < 92% Ondansetron HCl (Ondansetron 4 Mg/2 Ml Inj) 4 mg IV Q8H PRN PRN Reason: Nausea And Vomiting Oxycodone/Acetaminophen (Oxycodone /Acetaminophen 5-325mg Tab) 1 tab PO Q6H PRN PRN Reason: Pain, Moderate (4-6) Senna (Sennosides 8.6 Mg Tab) 8.6 mg PO Q12HR PRN PRN Reason: Constipation Sodium Chloride (Sodium Chloride 0.9% 10 Ml Flush Syringe) 10 ml IV BID CATY Sodium Chloride (Sodium Chloride 0.9% 10 Ml Flush Syringe) 10 ml IV PRN PRN PRN Reason: LINE FLUSH Trazodone HCl (Trazodone 50 Mg Tab) 50 mg PO QHS PRN PRN Reason: Insomnia Review of Systems Constitutional: anorexia, fatigue, weakness, malaise Ears, nose, mouth and throat: no bleeding gums, no dental pain Cardiovascular: shortness of breath, dyspnea on exertion, high blood pressure, leg edema Respiratory: cough, shortness of breath Gastrointestinal: no melena Genitourinary Female: no dyspareunia Rectal: no itching, no hemorrhoids Musculoskeletal: low back pain, other (Lower back pain), no neck stiffness Integumentary: no pruritis, no sores, no wounds Neurological: weakness Psychiatric: anxiety Endocrine: no excessive sweating, no flushing Hematologic/Lymphatic: no easy bruising Allergic/Immunologic: no urticaria Exam - Constitutional Vitals: Temp Pulse Resp BP Pulse Ox 97.9 F 109 H 18 109/75 100 08/02/21 21:21 08/02/21 21:21 08/02/21 21:21 08/02/21 21:21 08/02/21 21:21 General appearance: Present: mild distress, other (Frail appearing patient with lower leg edema) - EENT Eyes: Present: PERRL ENT: hearing intact, clear oral mucosa - Neck Neck: Present: supple, normal ROM - Respiratory Respiratory effort: normal Respiratory: bilateral: CTA - Cardiovascular Heart Sounds: Present: S1 & S2. Absent: rub, click - Extremities Extremities: pulses symmetrical, No edema Peripheral Pulses: within normal limits - Abdominal General gastrointestinal: Present: soft, non-tender, non-distended, normal bowel sounds Female genitourinary: Present: normal - Integumentary Integumentary: Present: clear, warm, dry - Musculoskeletal Musculoskeletal: strength equal bilaterally, generalized weakness - Psychiatric Psychiatric: appropriate mood/affect, intact judgment & insight, cooperative - Neurologic Neurologic: CNII-XII intact, moves all extremities - Allied Health Allied health notes reviewed: nursing HEART Score - HEART Score Troponin: Troponin T 0.049 ng/mL (0.00-0.029) H 08/03/21 01:20 Results - Labs CBC & Chem 7: 08/02/21 21:32 08/02/21 21:32 Labs: Abnormal lab results 08/02/21 08/02/21 08/03/21 Range/Units 21:32 21:32 01:20 RBC 2.77 L (3.65-5.03) M/mm3 Hgb 9.1 L (10.1-14.3) gm/dl Hct 27.6 L (30.3-42.9) % MCV 100 H (79-97) fl MCH 33 H (28-32) pg RDW 20.0 H (13.2-15.2) % Seg Neutrophils % 76.7 H (40.0-70.0) % Potassium 3.0 L (3.6-5.0) mmol/L Chloride 107.5 H (98-107) mmol/L Carbon Dioxide 19 L (22-30) mmol/L BUN 29 H (7-17) mg/dL Creatinine 1.3 H (0.6-1.2) mg/dL Glucose 119 H (65-100) mg/dL Calcium 7.7 L (8.4-10.2) mg/dL Total Bilirubin 1.40 H (0.1-1.2) mg/dL AST 69 H (5-40) units/L ALT 95 H (7-56) units/L Alkaline Phosphatase 261 H (35-129) units/L Troponin T 0.050 H 0.049 H (0.00-0.029) ng/mL Total Protein 5.3 L (6.3-8.2) g/dL Albumin 2.2 L (3.9-5) g/dL Triglycerides 171 H (2-149) mg/dL LDL Cholesterol Direct 21 L (50-130) mg/dL HDL Cholesterol 9 L (40-59) mg/dL Assessment and Plan - Patient Problems (1) Pneumonia Current Visit: Yes Status: Acute Plan to address problem: Likely secondary to viral/bacterial infection Patient is PUI Continue IV antibiotics Oxygen supplement if neededpresent patient presently on room air (2) Suspected COVID-19 virus infection Current Visit: Yes Status: Acute Plan to address problem: Continue contact airborne isolation for Covid protocol Empiric antibiotic- consults infectious disease Monitor inflammatory markers Encourage the use of incentive spirometer Patient is on room air calm and not in any distress (3) Nephrotic syndrome Current Visit: Yes Status: Acute Plan to address problem: Monitor kidney function Avoid nephrotoxic drugs including nonsteroidal anti-inflammatory agents Urine osmolarity and sodium Renal ultrasoundwe will consult talent acquisition director if needed Gentle IV hydration (4) Hypokalemia Current Visit: Yes Status: Acute Plan to address problem: Replaced potassiumwas replaced in the ED Monitor potassium level and replace as needed Check magnesium and phosphate level (5) Severe protein-calorie malnutrition Current Visit: Yes Status: Acute Plan to address problem: Likely secondary to malnutrition/kidney failure -serum albumin 2.2 Monitor kidney function Consult hand i tube bender (6) Anemia Current Visit: Yes Status: Acute Plan to address problem: Monitor H&H Iron and multivitamin supplement We will transfuse packed red blood cells if H&H is less than 7 (7) Bilateral lower extremity edema Current Visit: Yes Status: Acute Plan to address problem: Questionable cause Nephrotic syndrome/CHF Bilateral lower extremity ultrasound and echocardiogram (8) Tobacco use Current Visit: Yes Status: Acute Plan to address problem: Discussed tobacco use cessation Cardiovascular neoplasm syndrome of tobacco use explained to patient Patient voiced understanding (9) DVT prophylaxis Current Visit: Yes Status: Acute Plan to address problem: Subcutaneous heparin
[2021-08-03 07:22] LABS: C-Reactive Protein 2.9 mg/dL (0.00-1.30)
--- NOTE | 2021-08-03 11:15 | Consultation ---
History of Present Illness - Reason for Consult Consult date: 08/03/21 - History of Present Illness 50-year-old female past medical history diabetes, hypertension, history of gastric bypass surgery presented to the hospital complaining of weakness, leg edema, difficulty ambulating. She notes that her legs been swollen for the past week with shortness of breath and cough. She had similar complaints at the start of last month, however it spontaneously resolved. She otherwise denies any complaints. Afebrile with a white count 10.1. Slightly decreased renal function. Elevated liver enzymes. Blood cultures no growth so far. Currently on ceftriaxone and azithromycin. Imaging personally reviewed: CT abdomen pelvis: Fatty infiltration of the liver, mild lobe pneumonia in the left lung. Review of systems: Deferred to reduce to the risk of transmission of COVID-19 Past History Past Medical History: diabetes, hypertension, other (Obesity-status post gastric bypass) Past Surgical History: Other (Bariatric surgerygastric bypass) Social history: single, lives with family, smoking, full code. denies: alcohol abuse, prescription drug abuse, IV drug use Family history: no significant family history Medications and Allergies Allergies Allergy/AdvReac Type Severity Reaction Status Date / Time No Known Allergies Allergy Verified 01/22/20 21:58 Home Medications Medication Instructions Recorded Confirmed Last Taken Type traMADoL [Ultram] 50 mg PO Q6HR PRN #14 tablet 01/22/20 Unknown Rx Amoxicillin/Potassium Clav 1 each PO Q12H #20 tablet 09/13/20 Unknown Rx [Augmentin 875-125 Tablet] Benzonatate [Tessalon Perles] 100 mg PO Q8HR #30 capsule 09/13/20 Unknown Rx Cetirizine HCl [Zyrtec 10mg tab] 10 mg PO DAILY #30 tablet 09/13/20 Unknown Rx Ibuprofen [Motrin] 600 mg PO Q8H PRN #24 tablet 09/13/20 Unknown Rx Prednisone [predniSONE 10 mg 10 mg PO .TAPER #21 tab.ds.pk 09/13/20 Unknown Rx (6-Day Pack, 21 Tabs)] Naproxen 500 mg PO Q12H PRN #12 tablet 04/11/21 Unknown Rx Active Meds: Active Medications Acetaminophen (Acetaminophen 325 Mg Tab) 650 mg PO Q4H PRN PRN Reason: Pain MILD(1-3)/Fever >100.5/SIMPSON Al Hydrox/Mg Hydrox/Simethicone (Alum-Mag Hydroxide-Simethicone [phone]/5ml Oral Liqd 30 Ml) 30 ml PO Q4H PRN PRN Reason: Indigestion Benzonatate (Benzonatate 100 Mg Cap) 100 mg PO Q8HR [facility] Cetirizine HCl (Cetirizine 10 Mg Tab) 10 mg PO DAILY [facility] Ferrous Sulfate (Ferrous Sulfate 325 Mg Tab) 325 mg PO QDAY [facility] Heparin Sodium (Porcine) (Heparin 5,000 Unit/1 Ml Vial) 5,000 unit SUB-Q Q12HR [facility] Hydralazine HCl (Hydralazine 20 Mg/1 Ml Inj) 5 mg IV Q4HR PRN PRN Reason: Hypertension Sodium Chloride (Nacl 0.9% 1000 Ml) 1,000 mls @ 42 mls/hr IV DIRECT CATY Ceftriaxone Sodium (Rocephin/Ns 2 Gm/100 Ml) 2 gm in 100 mls @ 200 mls/hr IV Q24H [facility]; Protocol Azithromycin (Zithromax/Ns) 500 mg in 250 mls @ 250 mls/hr IV Q24H [facility]; Protocol Magnesium Hydroxide (Magnesium Hydroxide (Mom) Oral Liqd Udc) 30 ml PO Q4H PRN PRN Reason: Constipation Metoclopramide HCl (Metoclopramide 10 Mg/2 Ml Inj) 10 mg IV Q6H PRN PRN Reason: Nausea And Vomiting Morphine Sulfate (Morphine 2 Mg/1 Ml Inj) 2 mg IV Q4H PRN PRN Reason: Pain, Moderate (4-6) Multivitamins (Multivitamins ,Therapeutic Tab) 1 each PO QDAY [facility] Naloxone HCl (Naloxone 0.4 Mg/1 Ml Inj) 0.1 mg IV Q2MIN PRN PRN Reason: Res Rate </= 8 or 02 SAT < 92% Ondansetron HCl (Ondansetron 4 Mg/2 Ml Inj) 4 mg IV Q8H PRN PRN Reason: Nausea And Vomiting Oxycodone/Acetaminophen (Oxycodone /Acetaminophen 5-325mg Tab) 1 tab PO Q6H PRN PRN Reason: Pain, Moderate (4-6) Senna (Sennosides 8.6 Mg Tab) 8.6 mg PO Q12HR PRN PRN Reason: Constipation Sodium Chloride (Sodium Chloride 0.9% 10 Ml Flush Syringe) 10 ml IV BID CATY Sodium Chloride (Sodium Chloride 0.9% 10 Ml Flush Syringe) 10 ml IV PRN PRN PRN Reason: LINE FLUSH Tramadol HCl (Tramadol 50 Mg Tab) 50 mg PO Q6HR PRN PRN Reason: Pain, Moderate (4-6) Trazodone HCl (Trazodone 50 Mg Tab) 50 mg PO QHS PRN PRN Reason: Insomnia Physical Examination - Physical Exam Narrative exam: Physical exam deferred to reduce risk of transmission of COVID-19. Please refer to primary team's note. - Constitutional Vitals: Vital Signs Temp Pulse Resp BP Pulse Ox 97.9 F 109 H 18 109/75 100 08/02/21 21:21 08/02/21 21:21 08/02/21 21:21 08/02/21 21:21 08/02/21 21:21 Temperature -Last 24 Hours Temperature 97.9 F Results - Labs CBC & Chem 7: 08/02/21 21:32 08/02/21 21:32 Labs: Abnormal lab results 08/02/21 08/02/21 08/03/21 Range/Units 21:32 21:32 01:20 RBC 2.77 L (3.65-5.03) M/mm3 Hgb 9.1 L (10.1-14.3) gm/dl Hct 27.6 L (30.3-42.9) % MCV 100 H (79-97) fl MCH 33 H (28-32) pg RDW 20.0 H (13.2-15.2) % Seg Neutrophils % 76.7 H (40.0-70.0) % D-Dimer (0-234) ng/mlDDU Potassium 3.0 L (3.6-5.0) mmol/L Chloride 107.5 H (98-107) mmol/L Carbon Dioxide 19 L (22-30) mmol/L BUN 29 H (7-17) mg/dL Creatinine 1.3 H (0.6-1.2) mg/dL Glucose 119 H (65-100) mg/dL Calcium 7.7 L (8.4-10.2) mg/dL Phosphorus (2.5-4.5) mg/dL Total Bilirubin 1.40 H (0.1-1.2) mg/dL AST 69 H (5-40) units/L ALT 95 H (7-56) units/L Alkaline Phosphatase 261 H (35-129) units/L Lactate Dehydrogenase (91-180) units/L Troponin T 0.050 H 0.049 H (0.00-0.029) ng/mL C-Reactive Protein (0.00-1.30) mg/dL Total Protein 5.3 L (6.3-8.2) g/dL Albumin 2.2 L (3.9-5) g/dL Triglycerides 171 H (2-149) mg/dL LDL Cholesterol Direct 21 L (50-130) mg/dL HDL Cholesterol 9 L (40-59) mg/dL 08/03/21 08/03/21 Range/Units 01:20 07:00 RBC (3.65-5.03) M/mm3 Hgb (10.1-14.3) gm/dl Hct (30.3-42.9) % MCV (79-97) fl MCH (28-32) pg RDW (13.2-15.2) % Seg Neutrophils % (40.0-70.0) % D-Dimer 323.16 H (0-234) ng/mlDDU Potassium (3.6-5.0) mmol/L Chloride (98-107) mmol/L Carbon Dioxide (22-30) mmol/L BUN (7-17) mg/dL Creatinine (0.6-1.2) mg/dL Glucose (65-100) mg/dL Calcium (8.4-10.2) mg/dL Phosphorus 2.30 L (2.5-4.5) mg/dL Total Bilirubin (0.1-1.2) mg/dL AST (5-40) units/L ALT (7-56) units/L Alkaline Phosphatase (35-129) units/L Lactate Dehydrogenase 632 H (91-180) units/L Troponin T (0.00-0.029) ng/mL C-Reactive Protein 2.90 H (0.00-1.30) mg/dL Total Protein (6.3-8.2) g/dL Albumin (3.9-5) g/dL Triglycerides (2-149) mg/dL LDL Cholesterol Direct (50-130) mg/dL HDL Cholesterol (40-59) mg/dL Assessment and Plan Cultures: Blood culture no growth so far COVID PCR: pending A/P: 50-year-old female past medical history diabetes, hypertension, history of gastric bypass surgery admitted with: #COVID PUI: mild left pneumonia. Otherwise symptoms more consistent with a CHF exacerbation. #Bilateral leg edema: pending echo #MATIAS: renally dose antibiotics. #Diabetes: tight glycemic control for best outcomes. Recs: -Follow up echo -Ordered procalcitonin for AM labs -If low stop antibiotics -Follow up COVID PCR Thank you for the consult, we will continue to follow. Franky Matthews MD [facility] ([facility] O: [phone] F: [phone]
--- NOTE | 2021-08-03 12:31 | Vascular Lab Report ---
DUPLEX DOPPLER LOWER EXTREMITY VEINS, BILATERAL INDICATION: bilateral leg edema. TECHNIQUE: Duplex doppler imaging was performed through the veins of both lower extremities using ve nous compression and other maneuvers. COMPARISON: No relevant prior imaging study available. FINDINGS: Right Common femoral vein: Negative. Right Superficial femoral vein: Negative. Right Popliteal vein: Negative. Right Calf veins: Negative. Left Common femoral vein: Negative. Left Superficial femoral vein: Negative. Left Popliteal vein: Negative. Left Calf veins: Negative. Additional findings: None. IMPRESSION: No sonographic evidence for DVT in either lower extremity. Signer Name: Modesto Hyde Jr, MD Signed: 08/03/2021 12:26 PM Workstation Name: [id number]
--- NOTE | 2021-08-03 14:15 | Ultrasound Report ---
ULTRASOUND RENAL INDICATION / CLINICAL INFORMATION: MATIAS. COMPARISON: CT abdomen/pelvis without contrast performed today. FINDINGS: RIGHT KIDNEY: Length = 10.2 cm. - Echogenicity: Increased. - Cortical Thickness: Normal. - Hydronephrosis: None. - Cyst / Mass: None. - Stones: None seen. LEFT KIDNEY: Length = 8.9 cm. - Echogenicity: Increased. - Cortical Thickness: Normal. - Hydronephrosis: None. - Cyst / Mass: None. - Stones: None seen. URINARY BLADDER: No significant abnormality. FREE FLUID: None. ADDITIONAL FINDINGS: None. IMPRESSION: 1. Increased cortical echogenicity bilaterally, ultimately nonspecific but can be seen with medical r enal disease. Scribed by: Krista Astudillo RDMS, RVT Scribed: 08/03/2021 12:30 PM I have reviewed the images, agree with this report, and edited this report as needed. Signer Name: Aleks Toure MD Signed: 08/03/2021 2:06 PM Workstation Name: [id number]
[2021-08-03] MEDS: HEPARIN 5,000 UNIT/1 ML VIAL SUB-Q SCH ×2 (15:15→22:08)
--- NOTE | 2021-08-03 16:37 | Event Note ---
Date: 08/03/21 Patient seen and examined Patient complains of back pain right thigh pain Covid test pending 2D echo: Pending Ordered another dose of Lasix ID following Continue empiric antibiotics Continue current plan and management as dictated in the HPI
[2021-08-03] MEDS ORDERED: FUROSEMIDE 20 MG/2 ML INJ IV SCH (17:00)
[2021-08-03 17:28] LABS: BUN/Creatinine Ratio 29; Blood Urea Nitrogen 26 mg/dL (7-17); Calcium 7.2 mg/dL (8.4-10.2); Hemolysis Index 9
[2021-08-03] MEDS: traZODone 50 MG TAB PO PRN (22:06)
[2021-08-03] MEDS: traMADol 50 MG TAB PO PRN (22:07)
[2021-08-04] MEDS: BENZONATATE 100 MG CAP PO SCH ×5 (02:24→21:09)
[2021-08-04] MEDS: cefTRIAXone/NS 2 GM/100 ML 2 GM/100 ML BAG IV SCH (05:32)
[2021-08-04] MEDS: FUROSEMIDE 20 MG/2 ML INJ IV SCH (05:33)
[2021-08-04] MEDS: AZITHROMYCIN/NS 500 MG/250 ML 500 MG/250 ML BAG IV SCH (05:33)
[2021-08-04] MEDS: MULTIVITAMINS ,THERAPEUTIC TAB PO SCH ×2 (09:09→09:11)
[2021-08-04] MEDS: CETIRIZINE 10 MG TAB PO SCH ×2 (09:09→09:11)
[2021-08-04] MEDS: FERROUS SULFATE 325 MG TAB PO SCH ×2 (09:10→09:11)
[2021-08-04] MEDS: HEPARIN 5,000 UNIT/1 ML VIAL SUB-Q SCH (09:10)
[2021-08-04] MEDS: oxyCODONE /ACETAMINOPHEN 5-325MG TAB PO PRN ×2 (09:37→21:09)
[2021-08-04] MEDS ORDERED: DEXAMETHASONE 4 MG TAB PO NR (10:50)
--- NOTE | 2021-08-04 11:05 | Progress Note ---
Assessment and Plan Cultures: Blood culture no growth so far COVID PCR: Positive A/P: 50-year-old female past medical history diabetes, hypertension, history of gastric bypass surgery admitted with: #COVID pneumonia: mild left pneumonia. #Bilateral leg edema: pending echo #MATIAS: renally dose antibiotics. #Diabetes: tight glycemic control for best outcomes. Recs: -Follow up echo -Procalcitonin elevated in the setting of MTAIAS, continue antibiotics for 5 days Thank you for the consult, we will continue to follow. Franky Matthews MD [facility] ([facility] O: [phone] F: [phone] Subjective Date of service: 08/04/21 Interval history: Afebrile, normal white count. Blood cultures no growth so far. Objective - Exam Narrative Exam: Physical exam deferred to reduce risk of transmission of COVID-19. Please refer to primary team's note. - Constitutional Vitals: Vital Signs Temp Pulse Resp BP Pulse Ox 97.5 F L 88 18 118/79 100 08/03/21 21:10 08/03/21 21:10 08/03/21 21:10 08/03/21 21:10 08/03/21 21:10 Temperature -Last 24 Hours Temperature 97.5 F Temperature 98.8 F - Labs CBC & Chem 7: 08/02/21 21:32 08/03/21 17:10 Labs: Abnormal lab results 08/03/21 08/03/21 08/03/21 Range/Units 07:00 17:10 Unknown Potassium 3.5 L (3.6-5.0) mmol/L Chloride 112.1 H (98-107) mmol/L Carbon Dioxide 21 L (22-30) mmol/L BUN 26 H (7-17) mg/dL Glucose 117 H (65-100) mg/dL Calcium 7.2 L (8.4-10.2) mg/dL Ferritin 513.8 H (10.0-200.0) ng/mL Coronavirus (PCR) Positive A (Negative)
[2021-08-04 11:36] LABS: Basophils % (Auto) 0.2 % (0.0-1.8); Hematocrit 21.2 % (30.3-42.9); Hemoglobin 7.1 gm/dl (10.1-14.3); Lymphocytes # (Auto) 2.3 K/mm3 (1.2-5.4); Lymphocytes % (Auto) 25.3 % (13.4-35.0); Mean Corpuscular HGB Conc 34 % (30-34); Mean Corpuscular Volume 98 fl (79-97); Monocytes % (Auto) 10.4 % (0.0-7.3); Platelet Count 104 K/mm3 (140-440); Red Blood Count 2.16 M/mm3 (3.65-5.03)
[2021-08-04 11:56] LABS: BUN/Creatinine Ratio 29; Blood Urea Nitrogen 23 mg/dL (7-17); Calcium 7.4 mg/dL (8.4-10.2); Hemolysis Index 0
--- NOTE | 2021-08-04 16:45 | Progress Note ---
Assessment and Plan 50-year-old female past medical history diabetes, hypertension, history of gastric bypass surgery presented to the hospital complaining of weakness, leg edema, difficulty ambulating along with shortness of breath and cough for last [address] abdomen pelvis showed fatty infiltration of the liver, mild lobe pneumonia in the left lung. Patient tested positive for COVID-19. Assessment and plan: -- Pneumonia Likely secondary to COVID-19 +/- bacterial infection Continue IV antibiotics Oxygen supplement if neededpresent patient presently on room air -- COVID-19 virus infection Continue contact airborne isolation for Covid protocol Empiric antibiotic- consults infectious disease Monitor inflammatory markers Encourage the use of incentive spirometer Patient is on room air calm and not in any distress -- MATIAS, likely vasomotor nephropathy -resolved Monitor kidney function Avoid nephrotoxic drugs including nonsteroidal anti-inflammatory agents Renal ultrasoundwe will consult nuclear plant operator if needed Gentle IV hydration -- Hypokalemia Monitor potassium level and replace as needed Check magnesium and phosphate level -- NSTEMI likely type II Likely secondary to kidney failure -2D echo showed preserved EF Monitor kidney function, serial troponin Consult pet sitter -- Anemia Monitor H&H Iron and multivitamin supplement We will transfuse packed red blood cells if H&H is less than 7 -- Bilateral lower extremity edema Questionable cause ?? 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 Consulted cardiology for elevated troponin. 2D echo showed preserved EF. Patient also tested positive for COVID- 19.resting on room air, inflammatory markers slightly elevated. No need for dexamethasone on remdesivir for now as patient on room air. ID following. Follow clinically. Subjective Date of service: 08/04/21 Interval history: Patient seen and examined. Medical records and medication list reviewed. No acute event overnight noted by the RN. Patient denies any difficulty breathing. Patient is tolerating diet. Complains of back pain. Patient resting on room air Denies any chest pain Discussed plan of care at bedside with patient. Objective - Exam Narrative Exam: Limited physical exam due to COVID-19 pandemic to minimize transmission of the disease and to preserve PPE. Vital reviewed and stable. GENERAL: well-developed well-nourished -[place] elderly female lying on bed appeared to be in no discomfort. HEENT: Normocephalic. Atraumatic. NECK: Supple. CHEST/LUNGS: breathing nonlabored. HEART/CARDIOVASCULAR: Heart rate stable on telemetry ABDOMEN: Visibly not distended SKIN: There is no rash NEURO: No focal motor deficit. Follows command. MUSCULOSKELETAL: No joint effusion EXTRIMITY: No swelling, no cyanosis or clubbing. PSYCH: Cooperative. - Constitutional Vitals: Vital Signs - 12hr 08/04/21 10:24 Temperature 98.1 F Pulse Rate 79 Respiratory 18 Rate Blood Pressure 116/70 O2 Sat by Pulse 100 Oximetry - Labs CBC & Chem 7: 08/05/21 08:54 08/05/21 08:54 Labs: Abnormal lab results 08/03/21 08/03/21 08/04/21 Range/Units 17:10 Unknown 10:53 RBC 2.16 L (3.65-5.03) M/mm3 Hgb 7.1 L (10.1-14.3) gm/dl Hct 21.2 L D (30.3-42.9) % MCV 98 H (79-97) fl MCH 33 H (28-32) pg RDW 21.0 H (13.2-15.2) % Plt Count 104 L (140-440) K/mm3 [place] % (Auto) 10.4 H (0.0-7.3) % [place] # (Auto) 1.0 H (0.0-0.8) K/mm3 Potassium 3.5 L (3.6-5.0) mmol/L Chloride 112.1 H (98-107) mmol/L Carbon Dioxide 21 L (22-30) mmol/L BUN 26 H (7-17) mg/dL Glucose 117 H (65-100) mg/dL Calcium 7.2 L (8.4-10.2) mg/dL Coronavirus (PCR) Positive A (Negative) 08/04/21 Range/Units 10:53 RBC (3.65-5.03) M/mm3 Hgb (10.1-14.3) gm/dl Hct (30.3-42.9) % MCV (79-97) fl MCH (28-32) pg RDW (13.2-15.2) % Plt Count (140-440) K/mm3 [place] % (Auto) (0.0-7.3) % [place] # (Auto) (0.0-0.8) K/mm3 Potassium (3.6-5.0) mmol/L Chloride 110.5 H (98-107) mmol/L Carbon Dioxide (22-30) mmol/L BUN 23 H (7-17) mg/dL Glucose 120 H (65-100) mg/dL Calcium 7.4 L (8.4-10.2) mg/dL Coronavirus (PCR) (Negative) HEART Score - HEART Score Troponin: Troponin T 0.049 ng/mL (0.00-0.029) H 08/03/21 01:20
[2021-08-04] MEDS: traZODone 50 MG TAB PO PRN (21:09)
[2021-08-05] MEDS: BENZONATATE 100 MG CAP PO SCH ×2 (05:15→16:48)
[2021-08-05] MEDS: FUROSEMIDE 20 MG/2 ML INJ IV SCH (05:15)
[2021-08-05] MEDS: AZITHROMYCIN/NS 500 MG/250 ML 500 MG/250 ML BAG IV SCH (05:16)
[2021-08-05] MEDS: cefTRIAXone/NS 2 GM/100 ML 2 GM/100 ML BAG IV SCH (05:16)
[2021-08-05 09:14] LABS: Basophils % (Auto) 0.2 % (0.0-1.8); Hematocrit 20.1 % (30.3-42.9); Hemoglobin 6.7 gm/dl (10.1-14.3); Lymphocytes # (Auto) 1.6 K/mm3 (1.2-5.4); Lymphocytes % (Auto) 23.1 % (13.4-35.0); Mean Corpuscular HGB Conc 33 % (30-34); Mean Corpuscular Volume 99 fl (79-97); Monocytes # (Auto) 0.8 K/mm3 (0.0-0.8); Monocytes % (Auto) 11.8 % (0.0-7.3); Platelet Count 100 K/mm3 (140-440); Red Blood Count 2.04 M/mm3 (3.65-5.03)
[2021-08-05 09:25] LABS: Red Cell Distribution Width 21.8 % (13.2-15.2)
[2021-08-05 09:27] LABS: Blood Urea Nitrogen 16 mg/dL (7-17); Calcium 6.9 mg/dL (8.4-10.2); Hemolysis Index 6
[2021-08-05 09:29] LABS: BUN/Creatinine Ratio 27
[2021-08-05] MEDS ORDERED: POTASSIUM PHOSPHATE 45 MMOL in SODIUM CHLORIDE 0.9% 500 ML 500 ML IV ONE (10:28)
[2021-08-05] MEDS ORDERED: POTASSIUM CHLORIDE ER 20 MEQ TAB PO ONE (10:28)
[2021-08-05] MEDS: FERROUS SULFATE 325 MG TAB PO SCH (11:40)
[2021-08-05] MEDS: CETIRIZINE 10 MG TAB PO SCH (11:40)
[2021-08-05] MEDS: MULTIVITAMINS ,THERAPEUTIC TAB PO SCH (11:41)
[2021-08-05] MEDS: oxyCODONE /ACETAMINOPHEN 5-325MG TAB PO PRN (12:07)
[2021-08-05] MEDS: MORPHINE 2 MG/1 ML INJ IV PRN (12:35)
[2021-08-05] MEDS ORDERED: SODIUM CHLORIDE 0.9% 500 ML 500 ML IV ONE (14:39)
--- NOTE | 2021-08-05 15:40 | Progress Note ---
Assessment and Plan 50-year-old female past medical history diabetes, hypertension, history of gastric bypass surgery presented to the hospital complaining of weakness, leg edema, difficulty ambulating along with shortness of breath and cough for last [address] abdomen pelvis showed fatty infiltration of the liver, mild lobe pneumonia in the left lung. Patient tested positive for COVID-19. Assessment and plan: -- Pneumonia Likely secondary to COVID-19 +/- bacterial infection Continue IV antibiotics Oxygen supplement if neededpresent patient presently on room air -- COVID-19 virus infection Continue contact airborne isolation for Covid protocol Empiric antibiotic- consults infectious disease Monitor inflammatory markers Encourage the use of incentive spirometer Patient is on room air calm and not in any distress -- MATIAS, likely vasomotor nephropathy -resolved Monitor kidney function Avoid nephrotoxic drugs including nonsteroidal anti-inflammatory agents Renal ultrasoundwe will consult student truck driver if needed Gentle IV hydration -- Hypokalemia Monitor potassium level and replace as needed Check magnesium and phosphate level -- NSTEMI likely type II Likely secondary to kidney failure -2D echo showed preserved EF Monitor kidney function, serial troponin Consult jet handler -- Anemia with thrombocytopenia Monitor H&H Iron and multivitamin supplement We will transfuse packed red blood cells if H&H is less than 7 -- Bilateral lower extremity edema Questionable cause ?? 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 Consulted cardiology for elevated troponin. 2D echo showed preserved EF. Patient also tested positive for COVID- 19.resting on room air, inflammatory markers slightly elevated. No need for dexamethasone on remdesivir for now as patient on room air. ID following. Follow clinically. 08/05/21: Patient continues to complains of back pain. Hemoglobin dropped to 6.7. Platelets 100 and potassium level 2.9 today. We will stop Heparin, ordered 1 pack RBC. Ordered stool for occult blood. Resting on room air. cardiac consult pending. Continue to follow serial troponin. Replete electrolytes Subjective Date of service: 08/05/21 Interval history: Patient seen and examined. Medical records and medication list reviewed. No acute event overnight noted by the RN. Patient denies any difficulty breathing. Patient is tolerating diet. Complains of back pain. Patient resting on room air Denies any chest pain Discussed plan of care at bedside with patient. Objective - Exam Narrative Exam: Limited physical exam due to COVID-19 pandemic to minimize transmission of the disease and to preserve PPE. Vital reviewed and stable. GENERAL: well-developed well-nourished -[place] elderly female lying on bed appeared to be in no discomfort. HEENT: Normocephalic. Atraumatic. NECK: Supple. CHEST/LUNGS: breathing nonlabored. HEART/CARDIOVASCULAR: Heart rate stable on telemetry ABDOMEN: Visibly not distended SKIN: There is no rash NEURO: No focal motor deficit. Follows command. MUSCULOSKELETAL: No joint effusion EXTRIMITY: No swelling, no cyanosis or clubbing. PSYCH: Cooperative. - Constitutional Vitals: Vital Signs - 12hr 08/05/21 08/05/21 05:10 11:29 Temperature 98.2 F 99.5 F Pulse Rate 90 98 H Respiratory 18 18 Rate Blood Pressure 101/64 100/65 O2 Sat by Pulse 98 99 Oximetry - Labs CBC & Chem 7: 08/05/21 08:54 08/05/21 08:54 Labs: Abnormal lab results 08/05/21 08/05/21 Range/Units 08:54 08:54 RBC 2.04 L (3.65-5.03) M/mm3 Hgb 6.7 L (10.1-14.3) gm/dl Hct 20.1 L (30.3-42.9) % MCV 99 H (79-97) fl MCH 33 H (28-32) pg RDW 21.8 H (13.2-15.2) % Plt Count 100 L (140-440) K/mm3 [place] % (Auto) 11.8 H (0.0-7.3) % Potassium 2.9 L* (3.6-5.0) mmol/L Chloride 110.5 H (98-107) mmol/L Calcium 6.9 L (8.4-10.2) mg/dL HEART Score - HEART Score Troponin: Troponin T 0.049 ng/mL (0.00-0.029) H 08/03/21 01:20
--- NOTE | 2021-08-05 19:14 | Consultation ---
History of Present Illness Consult date: 08/05/21 Requesting physician: MANOLO FINK Consult reason: elevated troponin History of present illness: Pt is a 60-year-old female, previously unknown to our practice, who presented with complaints of SOB/JANE and cough x 1 week. Pt also reports BLE swelling. She was found to be COVID-positive and is currently being treated as such. Not currently requiring supplemental O2. Cardiology has been consulted for evaluation of elevated troponin. Cardiac enzymes noted to be mildly elevated at admission, though flat, and notably in the setting of MATIAS and anemia. Pt denies chest pain. ECG reveals no acute ischemic changes. No prior ischemic workup available for review. Past History Past Medical History: diabetes, hypertension Past Surgical History: Other (gastric bypass). denies: CABG, PTCA Social history: smoking. denies: alcohol abuse Family history: no significant family history Medications and Allergies Allergies Allergy/AdvReac Type Severity Reaction Status Date / Time No Known Allergies Allergy Verified 01/22/20 21:58 Home Medications Medication Instructions Recorded Confirmed Last Taken Type traMADoL [Ultram] 50 mg PO Q6HR PRN #14 tablet 01/22/20 Unknown Rx Amoxicillin/Potassium Clav 1 each PO Q12H #20 tablet 09/13/20 Unknown Rx [Augmentin 875-125 Tablet] Benzonatate [Tessalon Perles] 100 mg PO Q8HR #30 capsule 09/13/20 Unknown Rx Cetirizine HCl [Zyrtec 10mg tab] 10 mg PO DAILY #30 tablet 09/13/20 Unknown Rx Ibuprofen [Motrin] 600 mg PO Q8H PRN #24 tablet 09/13/20 Unknown Rx Prednisone [predniSONE 10 mg 10 mg PO .TAPER #21 tab.ds.pk 09/13/20 Unknown Rx (6-Day Pack, 21 Tabs)] Naproxen 500 mg PO Q12H PRN #12 tablet 04/11/21 Unknown Rx Active Meds: Active Medications Acetaminophen (Acetaminophen 325 Mg Tab) 650 mg PO Q4H PRN PRN Reason: Pain MILD(1-3)/Fever >100.5/SIMPSON Al Hydrox/Mg Hydrox/Simethicone (Alum-Mag Hydroxide-Simethicone [phone]/5ml Oral Liqd 30 Ml) 30 ml PO Q4H PRN PRN Reason: Indigestion Benzonatate (Benzonatate 100 Mg Cap) 100 mg PO Q8HR [facility] Last Admin: 08/05/21 16:48 Dose: 100 mg Documented by: Cetirizine HCl (Cetirizine 10 Mg Tab) 10 mg PO DAILY [facility] Last Admin: 08/05/21 11:40 Dose: 10 mg Documented by: Ferrous Sulfate (Ferrous Sulfate 325 Mg Tab) 325 mg PO QDAY [facility] Last Admin: 08/05/21 11:40 Dose: 325 mg Documented by: Furosemide (Furosemide 20 Mg/2 Ml Inj) 20 mg IV DAILY@0600 [facility] Last Admin: 08/05/21 05:15 Dose: 20 mg Documented by: Hydralazine HCl (Hydralazine 20 Mg/1 Ml Inj) 5 mg IV Q4HR PRN PRN Reason: Hypertension Sodium Chloride (Nacl 0.9% 1000 Ml) 1,000 mls @ 42 mls/hr IV DIRECT CATY Ceftriaxone Sodium (Rocephin/Ns 2 Gm/100 Ml) 2 gm in 100 mls @ 200 mls/hr IV Q 24H [facility]; Protocol Stop: 08/08/21 06:29 Last Admin: 08/05/21 05:16 Dose: 200 mls/hr Documented by: Azithromycin (Zithromax/Ns) 500 mg in 250 mls @ 250 mls/hr IV Q24H [facility]; Protocol Stop: 08/08/21 06:59 Last Admin: 08/05/21 05:16 Dose: 250 mls/hr Documented by: Magnesium Hydroxide (Magnesium Hydroxide (Mom) Oral Liqd Udc) 30 ml PO Q4H PRN PRN Reason: Constipation Metoclopramide HCl (Metoclopramide 10 Mg/2 Ml Inj) 10 mg IV Q6H PRN PRN Reason: Nausea And Vomiting Morphine Sulfate (Morphine 2 Mg/1 Ml Inj) 2 mg IV Q4H PRN PRN Reason: Pain, Moderate (4-6) Last Admin: 08/05/21 12:35 Dose: 2 mg Documented by: Multivitamins (Multivitamins ,Therapeutic Tab) 1 each PO QDAY [facility] Last Admin: 08/05/21 11:41 Dose: 1 each Documented by: Naloxone HCl (Naloxone 0.4 Mg/1 Ml Inj) 0.1 mg IV Q2MIN PRN PRN Reason: Res Rate </= 8 or 02 SAT < 92% Ondansetron HCl (Ondansetron 4 Mg/2 Ml Inj) 4 mg IV Q8H PRN PRN Reason: Nausea And Vomiting Oxycodone/Acetaminophen (Oxycodone /Acetaminophen 5-325mg Tab) 1 tab PO Q6H PRN PRN Reason: Pain, Moderate (4-6) Last Admin: 08/05/21 12:07 Dose: 1 tab Documented by: Senna (Sennosides 8.6 Mg Tab) 8.6 mg PO Q12HR PRN PRN Reason: Constipation Sodium Chloride (Sodium Chloride 0.9% 10 Ml Flush Syringe) 10 ml IV BID CATY Last Admin: 08/05/21 11:41 Dose: 10 ml Documented by: Sodium Chloride (Sodium Chloride 0.9% 10 Ml Flush Syringe) 10 ml IV PRN PRN PRN Reason: LINE FLUSH Tramadol HCl (Tramadol 50 Mg Tab) 50 mg PO Q6HR PRN PRN Reason: Pain, Moderate (4-6) Last Admin: 08/03/21 22:07 Dose: 50 mg Documented by: Trazodone HCl (Trazodone 50 Mg Tab) 50 mg PO QHS PRN PRN Reason: Insomnia Last Admin: 08/04/21 21:09 Dose: 50 mg Documented by: Physical Examination Last Vital Signs Temp 98.9 F 08/05/21 15:42 Pulse 104 H 08/05/21 15:42 Resp 18 08/05/21 15:42 BP 103/63 08/05/21 15:42 Pulse Ox 96 08/05/21 15:42 General appearance: no acute distress HEENT: Positive: Normocephaly Neck: Positive: neck supple, trachea midline Cardiac: Positive: Reg Rate and Rhythm Lungs: Positive: Decreased Breath Sounds Neuro: Positive: Grossly Intact Abdomen: Positive: Soft. Negative: Tender Skin: Negative: Rash Extremities: Present: lower extr. pulses, edema Results 08/05/21 08:54 08/05/21 15:23 CBC 08/05/21 Range/Units 08:54 WBC 6.8 (4.5-11.0) K/mm3 RBC 2.04 L (3.65-5.03) M/mm3 Hgb 6.7 L (10.1-14.3) gm/dl Hct 20.1 L (30.3-42.9) % Plt Count 100 L (140-440) K/mm3 Lymph # (Auto) 1.6 (1.2-5.4) K/mm3 [place]man # (Auto) 0.8 (0.0-0.8) K/mm3 Eos # (Auto) 0.0 (0.0-0.4) K/mm3 Baso # (Auto) 0.0 (0.0-0.1) K/mm3 Comprehensive Metabolic Panel 08/05/21 08/05/21 Range/Units 08:54 15:23 Sodium 140 (137-145) mmol/L Potassium 2.9 L* 4.1 D (3.6-5.0) mmol/L Chloride 110.5 H (98-107) mmol/L Carbon Dioxide 22 (22-30) mmol/L BUN 16 (7-17) mg/dL Creatinine 0.6 (0.6-1.2) mg/dL Glucose 78 (65-100) mg/dL Calcium 6.9 L (8.4-10.2) mg/dL - Imaging and Cardiology Echo: report reviewed EKG: report reviewed, image reviewed - EKG Interpretation EKG: no acute changes EKG interpretations - Telemetry EKG Rhythm: Sinus Rhythm - EKG Sinus rhythms and dysrhythmias: sinus rhythm Repolarization changes or abnormalities: nonspecific abnormality, ST segment, and/or T wave Assessment and Plan Echo reviewed - EF 50-55%, mild diastolic dysfxn. Ok to continue gentle IV diuresis with PRN repletion of electrolytes. CE elevation appears consistent with non-[place] troponin elevation in the setting of MATIAS (POA). Repeat troponin level pending. Pt seen in conjunction with Dr. Packer, who agrees with the assessment and plan of care. - Patient Problems (1) COVID-19 virus infection Current Visit: Yes Status: Acute (2) Pneumonia Current Visit: Yes Status: Acute (3) Acute heart failure with preserved ejection fraction (HFpEF) Current Visit: Yes Status: Acute (4) Elevated troponin Current Visit: Yes Status: Acute (5) Anemia Current Visit: Yes Status: Acute (6) Thrombocytopenia Current Visit: Yes Status: Acute (7) Tobacco use Current Visit: Yes Status: Chronic
[2021-08-06] MEDS: BENZONATATE 100 MG CAP PO SCH ×3 (01:04→21:34)
[2021-08-06] MEDS: traZODone 50 MG TAB PO PRN (01:06)
[2021-08-06] MEDS: traMADol 50 MG TAB PO PRN ×2 (01:07→10:47)
[2021-08-06] MEDS: AZITHROMYCIN/NS 500 MG/250 ML 500 MG/250 ML BAG IV SCH (05:51)
[2021-08-06] MEDS: cefTRIAXone/NS 2 GM/100 ML 2 GM/100 ML BAG IV SCH (05:52)
[2021-08-06] MEDS: oxyCODONE /ACETAMINOPHEN 5-325MG TAB PO PRN ×3 (05:55→21:34)
[2021-08-06 09:51] LABS: Hemoglobin 6.8 gm/dl (10.1-14.3)
[2021-08-06] MEDS: FERROUS SULFATE 325 MG TAB PO SCH (10:46)
[2021-08-06] MEDS: CETIRIZINE 10 MG TAB PO SCH (10:46)
[2021-08-06] MEDS: MULTIVITAMINS ,THERAPEUTIC TAB PO SCH (10:46)
[2021-08-06] MEDS: FUROSEMIDE 20 MG/2 ML INJ IV SCH (10:46)
[2021-08-06] MEDS ORDERED: SODIUM FERRIC GLUCON/SUCRO 125 MG in SODIUM CHLORIDE 0.9% 100 ML IV ONE (11:00)
[2021-08-06 11:17] LABS: BUN/Creatinine Ratio 18; Blood Urea Nitrogen 11 mg/dL (7-17); Calcium 6.4 mg/dL (8.4-10.2); Hemolysis Index 0
--- NOTE | 2021-08-06 12:43 | Progress Note ---
Assessment and Plan 50-year-old female past medical history diabetes, hypertension, history of gastric bypass surgery presented to the hospital complaining of weakness, leg edema, difficulty ambulating along with shortness of breath and cough for last [address] abdomen pelvis showed fatty infiltration of the liver, mild lobe pneumonia in the left lung. Patient tested positive for COVID-19. Assessment and plan: -- Pneumonia Likely secondary to COVID-19 +/- bacterial infection Continue IV antibiotics Oxygen supplement if neededpresent patient presently on room air -- COVID-19 virus infection Continue contact airborne isolation for Covid protocol Empiric antibiotic- consults infectious disease Monitor inflammatory markers Encourage the use of incentive spirometer Patient is on room air calm and not in any distress -- MATIAS, likely vasomotor nephropathy -resolved Monitor kidney function Avoid nephrotoxic drugs including nonsteroidal anti-inflammatory agents Renal ultrasoundwe will consult assistant professor of marine biology if needed Gentle IV hydration -- Hypokalemia Monitor potassium level and replace as needed Check magnesium and phosphate level --Hypomagnesemia, continue to replete -- NSTEMI likely type II Likely secondary to kidney failure -2D echo showed preserved EF Monitor kidney function, serial troponin Consult sheet metal engineer -- Anemia with thrombocytopenia Monitor H&H Iron and multivitamin supplement Hemoglobin 6.8 today, patient admitted for transfusion -- Bilateral lower extremity edema Questionable cause ?? 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 Consulted cardiology for elevated troponin. 2D echo showed preserved EF. Patient also tested positive for COVID- 19.resting on room air, inflammatory markers slightly elevated. No need for dexamethasone on remdesivir for now as patient on room air. ID following. Follow clinically. 08/05/21: Patient continues to complains of back pain. Hemoglobin dropped to 6.7. Platelets 100 and potassium level 2.9 today. We will stop Heparin, ordered 1 pack RBC. Ordered stool for occult blood. Resting on room air. cardiac consult pending. Continue to follow serial troponin. Replete electrolytes 08/06: Continue to replete magnesium, patient refused blood transfusion yesterday but agreeable for today, continue to monitor H&H. Follow chemistry Subjective Date of service: 08/06/21 Interval history: Patient seen and examined. Medical records and medication list reviewed. No acute event overnight noted by the RN. Patient denies any difficulty breathing. Patient is tolerating diet. Patient resting on room air Denies any chest pain, H&H remains low Discussed plan of care at bedside with patient. Objective - Exam Narrative Exam: Limited physical exam due to COVID-19 pandemic to minimize transmission of the disease and to preserve PPE. Vital reviewed and stable. GENERAL: well-developed well-nourished -[place] elderly female lying on bed appeared to be in no discomfort. HEENT: Normocephalic. Atraumatic. NECK: Supple. CHEST/LUNGS: breathing nonlabored. HEART/CARDIOVASCULAR: Heart rate stable on telemetry ABDOMEN: Visibly not distended SKIN: There is no rash NEURO: No focal motor deficit. Follows command. MUSCULOSKELETAL: No joint effusion EXTRIMITY: No swelling, no cyanosis or clubbing. PSYCH: Cooperative. - Constitutional Vitals: Vital Signs - 12hr 08/06/21 05:18 Temperature 99.3 F Pulse Rate 83 Respiratory 22 Rate Blood Pressure 86/57 O2 Sat by Pulse 97 Oximetry - Labs CBC & Chem 7: 08/07/21 23:24 08/07/21 23:24 Labs: Abnormal lab results 08/05/21 08/05/21 08/05/21 Range/Units 15:00 15:23 15:23 Hgb (10.1-14.3) gm/dl Hct (30.3-42.9) % Chloride (98-107) mmol/L Glucose (65-100) mg/dL Calcium (8.4-10.2) mg/dL Magnesium 1.30 L (1.7-2.3) mg/dL NT-Pro-B Natriuret Pep 3461 H (0-900) pg/mL Crossmatch See Detail 08/06/21 08/06/21 Range/Units 09:31 09:31 Hgb 6.8 L (10.1-14.3) gm/dl Hct 20.0 L (30.3-42.9) % Chloride 111.7 H (98-107) mmol/L Glucose 104 H (65-100) mg/dL Calcium 6.4 L (8.4-10.2) mg/dL Magnesium 1.30 L (1.7-2.3) mg/dL NT-Pro-B Natriuret Pep (0-900) pg/mL Crossmatch HEART Score - HEART Score Troponin: Troponin T 0.021 ng/mL (0.00-0.029) 08/06/21 09:31
[2021-08-06] MEDS ORDERED: MAGNESIUM SULFATE 2 GM/50 ML BAG IV ONE (15:57)
--- NOTE | 2021-08-06 18:45 | Progress Note ---
Assessment and Plan Echo reviewed - EF 50-55%, mild diastolic dysfxn. Continue gentle IV diuresis with PRN repletion of electrolytes. May transition to PO Lasix in AM (20mg daily). Transfuse PRN pRBCs to maintain Hgb > 7.0 g/dL. Pt is now agreeable to receive blood transfusion. CE elevation appears consistent with non-[place] troponin elevation in the setting of MATIAS (POA). Otherwise continue present mgmt of COVID-19 infection per Primary teams. Pt seen in conjunction with Dr. Packer, who agrees with the assessment and plan of care. - Patient Problems (1) COVID-19 virus infection Current Visit: Yes Status: Acute (2) Pneumonia Current Visit: Yes Status: Acute (3) Acute heart failure with preserved ejection fraction (HFpEF) Current Visit: Yes Status: Acute (4) Elevated troponin Current Visit: Yes Status: Acute (5) Anemia Current Visit: Yes Status: Acute (6) Thrombocytopenia Current Visit: Yes Status: Acute (7) Tobacco use Current Visit: Yes Status: Chronic Subjective Date of service: 08/06/21 Principal diagnosis: COVID-19 PNA Interval history: No acute events overnight. C/o fatigue and mild SOB. Edema has improved. Tele reviewed - SR 80s. Objective Last Vital Signs Temp 98.2 F 08/06/21 10:37 Pulse 70 08/06/21 10:37 Resp 18 08/06/21 10:37 BP 104/66 08/06/21 10:37 Pulse Ox 95 08/06/21 10:37 - Physical Examination General: No Apparent Distress Cardiac: Positive: Reg Rate and Rhythm, S1/S2 Lungs: Positive: Decreased Breath Sounds Neuro: Positive: Grossly Intact Musculoskeletal: No Pain Extremities: Absent: edema - Labs and Meds CBC 08/06/21 Range/Units 09:31 Hgb 6.8 L (10.1-14.3) gm/dl Hct 20.0 L (30.3-42.9) % Comprehensive Metabolic Panel 08/06/21 Range/Units 09:31 Sodium 141 (137-145) mmol/L Potassium 4.0 (3.6-5.0) mmol/L Chloride 111.7 H (98-107) mmol/L Carbon Dioxide 25 (22-30) mmol/L BUN 11 (7-17) mg/dL Creatinine 0.6 (0.6-1.2) mg/dL Glucose 104 H (65-100) mg/dL Calcium 6.4 L (8.4-10.2) mg/dL - Imaging and Cardiology EKG: report reviewed, image reviewed Echo: report reviewed - Telemetry EKG Rhythm: Sinus Rhythm - EKG Sinus rhythms and dysrhythmias: sinus rhythm Repolarization changes or abnormalities: nonspecific abnormality, ST segment, and/or T wave - Allied health notes Allied health notes reviewed: nursing
[2021-08-06] MEDS ORDERED: SODIUM CHLORIDE 0.9% 500 ML 500 ML IV SCH (20:00)
[2021-08-07] MEDS: cefTRIAXone/NS 2 GM/100 ML 2 GM/100 ML BAG IV SCH (05:40)
[2021-08-07] MEDS: AZITHROMYCIN/NS 500 MG/250 ML 500 MG/250 ML BAG IV SCH (05:40)
[2021-08-07] MEDS: oxyCODONE /ACETAMINOPHEN 5-325MG TAB PO PRN (05:45)
--- NOTE | 2021-08-07 09:11 | Progress Note ---
Assessment and Plan 50-year-old female past medical history diabetes, hypertension, history of gastric bypass surgery presented to the hospital complaining of weakness, leg edema, difficulty ambulating along with shortness of breath and cough for last [address] abdomen pelvis showed fatty infiltration of the liver, mild lobe pneumonia in the left lung. Patient tested positive for COVID-19. Assessment and plan: -- Pneumonia Likely secondary to COVID-19 +/- bacterial infection Continue IV antibiotics Oxygen supplement if neededpresent patient presently on room air -- COVID-19 virus infection Continue contact airborne isolation for Covid protocol Empiric antibiotic- consults infectious disease Monitor inflammatory markers Encourage the use of incentive spirometer Patient is on room air calm and not in any distress -- MATIAS, likely vasomotor nephropathy -resolved Monitor kidney function Avoid nephrotoxic drugs including nonsteroidal anti-inflammatory agents Renal ultrasoundwe will consult skip tracer if needed Gentle IV hydration -- Hypokalemia Monitor potassium level and replace as needed Check magnesium and phosphate level --Hypomagnesemia, continue to replete -- NSTEMI likely type II Likely secondary to kidney failure -2D echo showed preserved EF Monitor kidney function, serial troponin Consult spice mixer -- Anemia with thrombocytopenia Monitor H&H Iron and multivitamin supplement Hemoglobin 6.8 today, patient admitted for transfusion -- Bilateral lower extremity edema Questionable cause ?? 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 Consulted cardiology for elevated troponin. 2D echo showed preserved EF. Patient also tested positive for COVID- 19.resting on room air, inflammatory markers slightly elevated. No need for dexamethasone on remdesivir for now as patient on room air. ID following. Follow clinically. 08/05/21: Patient continues to complains of back pain. Hemoglobin dropped to 6.7. Platelets 100 and potassium level 2.9 today. We will stop Heparin, ordered 1 pack RBC. Ordered stool for occult blood. Resting on room air. cardiac consult pending. Continue to follow serial troponin. Replete electrolytes 08/06: Continue to replete magnesium, patient refused blood transfusion yesterday but agreeable for today, continue to monitor H&H. Follow chemistry 08/07/21: H&H stable today, transfused last night. Continue to replete magnesium and follow clinically. Discontinued Lasix, cardiology recommended transfusion if needed for blood pressure control. Continue to follow clinically. If electrolytes stable possible discharge tomorrow. Subjective Date of service: 08/07/21 Principal diagnosis: COVID-19 PNA Interval history: Patient seen and examined. Medical records and medication list reviewed. No acute event overnight noted by the RN. Patient denies any difficulty breathing. Patient is tolerating diet. Patient resting on room air Denies any chest pain, transfuse last night Discussed plan of care at bedside with patient. Objective - Exam Narrative Exam: Limited physical exam due to COVID-19 pandemic to minimize transmission of the disease and to preserve PPE. Vital reviewed and stable. GENERAL: well-developed well-nourished -[place] elderly female lying on bed appeared to be in no discomfort. HEENT: Normocephalic. Atraumatic. NECK: Supple. CHEST/LUNGS: breathing nonlabored. HEART/CARDIOVASCULAR: Heart rate stable on telemetry ABDOMEN: Visibly not distended SKIN: There is no rash NEURO: No focal motor deficit. Follows command. MUSCULOSKELETAL: No joint effusion EXTRIMITY: No swelling, no cyanosis or clubbing. PSYCH: Cooperative. - Constitutional Vitals: Vital Signs - 12hr 08/06/21 08/06/21 08/06/21 21:34 21:46 22:00 Temperature 98.5 F Pulse Rate 75 Respiratory 19 18 18 Rate Blood Pressure 112/77 O2 Sat by Pulse 98 100 Oximetry 08/07/21 08/07/21 08/07/21 00:54 01:09 01:39 Temperature 98.8 F 98.9 F 98.9 F Pulse Rate 85 78 79 Respiratory 18 19 18 Rate Blood Pressure 105/77 113/72 116/79 O2 Sat by Pulse 100 99 98 Oximetry 08/07/21 08/07/21 08/07/21 02:09 02:39 03:09 Temperature 98.6 F 98.8 F 99 F Pulse Rate 79 82 81 Respiratory 19 17 18 Rate Blood Pressure 120/80 121/79 122/74 O2 Sat by Pulse 99 98 98 Oximetry 08/07/21 08/07/21 08/07/21 03:39 04:09 04:24 Temperature 98.9 F 98.9 F 98.9 F Pulse Rate 82 78 75 Respiratory 19 18 19 Rate Blood Pressure 124/82 126/81 129/83 O2 Sat by Pulse 98 99 100 Oximetry 08/07/21 05:45 Temperature Pulse Rate Respiratory 17 Rate Blood Pressure O2 Sat by Pulse Oximetry - Labs CBC & Chem 7: 08/07/21 23:24 08/07/21 23:24 Labs: Abnormal lab results 08/05/21 08/06/21 08/06/21 Range/Units 15:00 09:31 09:31 Hgb 6.8 L (10.1-14.3) gm/dl Hct 20.0 L (30.3-42.9) % Chloride 111.7 H (98-107) mmol/L Glucose 104 H (65-100) mg/dL Calcium 6.4 L (8.4-10.2) mg/dL Magnesium 1.30 L (1.7-2.3) mg/dL Crossmatch See Detail HEART Score - HEART Score Troponin: Troponin T 0.024 ng/mL (0.00-0.029) 08/06/21 23:27
[2021-08-07 09:45] LABS: Basophils # (Auto) 0.1 K/mm3 (0.0-0.1); Basophils % (Auto) 0.7 % (0.0-1.8); Eosinophils % (Auto) 0.1 % (0.0-4.3); Hematocrit 25.1 % (30.3-42.9); Hemoglobin 8.7 gm/dl (10.1-14.3); Lymphocytes # (Auto) 1.9 K/mm3 (1.2-5.4); Lymphocytes % (Auto) 23.5 % (13.4-35.0); Mean Corpuscular HGB Conc 35 % (30-34); Mean Corpuscular Volume 93 fl (79-97); Monocytes # (Auto) 0.8 K/mm3 (0.0-0.8); Monocytes % (Auto) 10.5 % (0.0-7.3); Platelet Count 82 K/mm3 (140-440); Red Cell Distribution Width 21.2 % (13.2-15.2)
[2021-08-07] MEDS ORDERED: FUROSEMIDE 20 MG TAB PO SCH (10:00)
[2021-08-07] MEDS: MULTIVITAMINS ,THERAPEUTIC TAB PO SCH (10:26)
[2021-08-07] MEDS: FERROUS SULFATE 325 MG TAB PO SCH (10:26)
[2021-08-07] MEDS: CETIRIZINE 10 MG TAB PO SCH (10:26)
[2021-08-07] MEDS: POTASSIUM CHLORIDE ER 10 MEQ TAB PO SCH (10:26)
[2021-08-07] MEDS: BENZONATATE 100 MG CAP PO SCH ×2 (13:44→21:03)
--- NOTE | 2021-08-07 14:05 | Electrocardiograph Report ---
[facility] Test Date: 2021-08-04 Test Time: 07:17:40 Pat Name: DEMI BALDERAS Department: Room: A377 1 Gender: F Hemotherapist: SUKUMAR : 1960 Requested By: ROSA SIN Order Number: [id number] Reading MD: Monica Dunn Measurements Intervals [place] Rate: 75 P: 124 IN: 132 QRS: 231 QRSD: 107 T: 88 QT: 410 QTc: 458 Interpretive Statements Sinus rhythm Right axis deviation Low voltage QRS Probable lateral infarct, age indeterminate Abnormal T, consider ischemia, anterior leads No previous ECG available for comparison Electronically Signed On 08-07-2021 14:04:38 EDT by Monica Dunn
--- NOTE | 2021-08-07 15:43 | Progress Note ---
Assessment and Plan Echo reviewed - EF 50-55%, mild diastolic dysfxn. Will discontinue Lasix at this time. May add HCTZ for BP control if needed. Otherwise recommend continuing to elevate extremities and utilizing compression stockings to aid with edema. CE elevation appears consistent with non-[place] troponin elevation in the setting of MATIAS (POA). Nothing further to add from a Cardiology standpoint at this time. Will see on as-needed basis. Plan for stress test as an outpatient upon resolution of COVID-19 infection. Will schedule outpatient follow-up with Dr. Packer ([phone]). Pt seen in conjunction with Dr. Packer, who agrees with the assessment and plan of care. - Patient Problems (1) COVID-19 virus infection Current Visit: Yes Status: Acute (2) Pneumonia Current Visit: Yes Status: Acute (3) Elevated troponin Current Visit: Yes Status: Acute (4) Anemia Current Visit: Yes Status: Acute (5) Thrombocytopenia Current Visit: Yes Status: Acute (6) Tobacco use Current Visit: Yes Status: Chronic Subjective Date of service: 08/07/21 Principal diagnosis: COVID-19 PNA Interval history: No acute events overnight. S/p 1u pRBCs. SOB improving. No edema. No tele data available for review. Objective Last Vital Signs Temp 98.1 F 08/07/21 12:00 Pulse 83 08/07/21 12:01 Resp 19 08/07/21 12:00 BP 143/93 08/07/21 12:00 Pulse Ox 100 08/07/21 12:01 - Labs and Meds CBC 08/07/21 Range/Units 08:23 WBC 8.0 (4.5-11.0) K/mm3 RBC 2.70 L (3.65-5.03) M/mm3 Hgb 8.7 L (10.1-14.3) gm/dl Hct 25.1 L (30.3-42.9) % Plt Count 82 L (140-440) K/mm3 Lymph # (Auto) 1.9 (1.2-5.4) K/mm3 [place] # (Auto) 0.8 (0.0-0.8) K/mm3 Eos # (Auto) 0.0 (0.0-0.4) K/mm3 Baso # (Auto) 0.1 (0.0-0.1) K/mm3 - Imaging and Cardiology EKG: report reviewed, image reviewed Echo: report reviewed - EKG Sinus rhythms and dysrhythmias: sinus rhythm Repolarization changes or abnormalities: nonspecific abnormality, ST segment, and/or T wave - Allied health notes Allied health notes reviewed: nursing
[2021-08-07] MEDS: traMADol 50 MG TAB PO PRN (21:03)
[2021-08-07 23:43] LABS: Hematocrit 27.1 % (30.3-42.9); Hemoglobin 9.3 gm/dl (10.1-14.3); Mean Corpuscular HGB Conc 34 % (30-34); Mean Corpuscular Volume 94 fl (79-97); Platelet Count 128 K/mm3 (140-440); Red Blood Count 2.88 M/mm3 (3.65-5.03)
[2021-08-07 23:46] LABS: Red Cell Distribution Width 21.3 % (13.2-15.2)
[2021-08-08 00:32] LABS: Blood Urea Nitrogen 6 mg/dL (7-17); Calcium 6.7 mg/dL (8.4-10.2); Hemolysis Index 0
[2021-08-08 00:35] LABS: BUN/Creatinine Ratio 10
[2021-08-08] MEDS: MULTIVITAMINS ,THERAPEUTIC TAB PO SCH (09:35)
[2021-08-08] MEDS: FERROUS SULFATE 325 MG TAB PO SCH (09:35)
[2021-08-08] MEDS: CETIRIZINE 10 MG TAB PO SCH (09:35)
[2021-08-08] MEDS: POTASSIUM CHLORIDE ER 10 MEQ TAB PO SCH (09:36)
[2021-08-08] MEDS: MORPHINE 2 MG/1 ML INJ IV PRN (09:37)
[2021-08-08] MEDS ORDERED: MAGNESIUM SULFATE 3 GM in SODIUM CHLORIDE 0.9% 100 ML IV ONE (12:00)
--- NOTE | 2021-08-08 12:27 | Progress Note ---
Assessment and Plan Cultures: Blood culture no growth so far COVID PCR: Positive A/P: 50-year-old female past medical history diabetes, hypertension, history of gastric bypass surgery admitted with: #COVID pneumonia: mild left pneumonia. #Bilateral leg edema: #MATIAS: renally dose antibiotics. #Diabetes: tight glycemic control for best outcomes. Recs: -Completed empiric antibiotics Thank you for the consult, we will sign off. Please call questions. Franky Matthews MD [facility] ([facility]) O: [phone] F: [phone] Subjective Date of service: 08/08/21 Principal diagnosis: COVID-19 PNA Interval history: Afebrile, normal white count. Objective - Exam Narrative Exam: Physical exam deferred to reduce risk of transmission of COVID-19. Please refer to primary team's note. - Constitutional Vitals: Vital Signs Temp Pulse Resp BP Pulse Ox 99.1 F 93 H 20 138/86 95 08/08/21 06:11 08/08/21 06:11 08/08/21 08:40 08/08/21 06:11 08/08/21 08:40 Temperature -Last 24 Hours Temperature 99.1 F - Labs CBC & Chem 7: 08/07/21 23:24 08/07/21 23:24 Labs: Abnormal lab results 08/07/21 08/07/21 08/07/21 Range/Units 23:24 23:24 23:24 RBC 2.88 L (3.65-5.03) M/mm3 Hgb 9.3 L (10.1-14.3) gm/dl Hct 27.1 L (30.3-42.9) % RDW 21.3 H (13.2-15.2) % Plt Count 128 L (140-440) K/mm3 D-Dimer 546.65 H (0-234) ng/mlDDU Chloride 108.6 H (98-107) mmol/L BUN 6 L (7-17) mg/dL Calcium 6.7 L (8.4-10.2) mg/dL Magnesium (1.7-2.3) mg/dL Ferritin (10.0-200.0) ng/mL Lactate Dehydrogenase 711 H (91-180) units/L C-Reactive Protein 3.60 H (0.00-1.30) mg/dL 08/07/21 08/07/21 Range/Units 23:24 23:24 RBC (3.65-5.03) M/mm3 Hgb (10.1-14.3) gm/dl Hct (30.3-42.9) % RDW (13.2-15.2) % Plt Count (140-440) K/mm3 D-Dimer (0-234) ng/mlDDU Chloride (98-107) mmol/L BUN (7-17) mg/dL Calcium (8.4-10.2) mg/dL Magnesium 1.10 L (1.7-2.3) mg/dL Ferritin 498.3 H (10.0-200.0) ng/mL Lactate Dehydrogenase (91-180) units/L C-Reactive Protein (0.00-1.30) mg/dL
[2021-08-08] MEDS: BENZONATATE 100 MG CAP PO SCH ×2 (15:42→22:17)
[2021-08-08] MEDS: oxyCODONE /ACETAMINOPHEN 5-325MG TAB PO PRN ×2 (15:53→22:18)
--- NOTE | 2021-08-08 17:01 | Discharge Summary ---
Providers - Providers Date of Admission: 08/03/21 06:14 Date of discharge: 08/09/21 Attending physician: MANOLO FINK 08/03/21 06:09 Consult to Physician [CONS] Routine Comment: Consulting Provider: SETH WEI Physician Instructions: Reason For Exam: PUI 08/03/21 06:38 Consult to Dietitian/Nutrition [CONS] Routine Physician Instructions: Reason For Exam: Reason for Consult: Severe calorie malnutrition 08/04/21 10:51 Consult to Physician [CONS] Routine Comment: Consulting Provider: SETH WEI Physician Instructions: Reason For Exam: covid positive 08/04/21 16:41 Consult to Physician [CONS] Routine Comment: Consulting Provider: BONY SAUNDERS Physician Instructions: Reason For Exam: elevated troponin with abnormal ekg 08/07/21 09:14 Physical Therapy Evaluation and Treat [CONS] Routine Comment: Reason For Exam: Debility Primary care physician: CLERICAL PROOFREADER Hospitalization Condition: Stable Hospital course: 50-year-old female past medical history diabetes, hypertension, history of gastric bypass surgery presented to the hospital complaining of weakness, leg edema, difficulty ambulating along with shortness of breath and cough for last [address] abdomen pelvis showed fatty infiltration of the liver, mild lobe pneumonia in the left lung. Patient tested positive for COVID-19. Patient was admitted for elevated troponin, positive COVID-19, MATIAS and electrolyte imbalance. Daily clinical course: 08/04/21: Continue to follow H&H and BMP. Consulted cardiology for elevated troponin. 2D echo showed preserved EF. Patient also tested positive for COVID- 19.resting on room air, inflammatory markers slightly elevated. No need for dexamethasone on remdesivir for now as patient on room air. ID following. Follow clinically. Continue empiric antibiotics. 08/05/21: Patient continues to complains of back pain. Hemoglobin dropped to 6.7. Platelets 100 and potassium level 2.9 today. We will stop Heparin, ordered 1 pack RBC. Ordered stool for occult blood. Resting on room air. cardiac consult pending. Continue to follow serial troponin. Replete electrolytes 08/06: Continue to replete magnesium, patient refused blood transfusion yesterday but agreeable for today, continue to monitor H&H. Follow chemistry 08/07/21: H&H stable today, transfused last night. Continue to replete magnesium and follow clinically. Discontinued Lasix, cardiology recommended transfusion if needed for blood pressure control. Continue to follow clinically. If electrolytes stable possible discharge tomorrow. 08/08/21: Patient resting on room air, patient remains ambulatory. Completed empiric antibiotics. Cardiology and ID cleared for discharge. Patient will be discharged home with outpatient follow-up. Before discharge she will be given magnesium replacement. Recommended repeat serum chemistry and CBC in 1 week. Patient was recommended to have outpatient work-up for anemia and thrombocytopenia once she is negative for Covid.. Disposition: 30 STILL A PATIENT Final Discharge Diagnosis (Prints w/discharge instructions): --Pneumonia likely secondary to COVID-19 +/- bacterial infection. -- COVID-19 virus infection. -- MATIAS, likely vasomotor nephropathy -resolved. -- Hypokalemia, Hypomagnesemia. -- NSTEMI likely type II , Likely secondary to kidney failure -2D echo showed preserved EF. -- Anemia with thrombocytopenia, status post 1 unit packed RBC transfusion Time spent for discharge: 34 minutes Core Measure Documentation - Palliative Care Palliative Care/ Comfort Measures: Not Applicable - Core Measures Any of the following diagnoses?: none Exam - Physical Exam Narrative exam: Limited physical exam due to COVID-19 pandemic to minimize transmission of the disease and to preserve PPE. Vital reviewed and stable. GENERAL: well-developed well-nourished -[place] elderly female lying on bed appeared to be in no discomfort. HEENT: Normocephalic. Atraumatic. NECK: Supple. CHEST/LUNGS: breathing nonlabored. HEART/CARDIOVASCULAR: Heart rate stable on telemetry ABDOMEN: Visibly not distended SKIN: There is no rash NEURO: No focal motor deficit. Follows command. MUSCULOSKELETAL: No joint effusion EXTRIMITY: No swelling, no cyanosis or clubbing. PSYCH: Cooperative. - Constitutional Vitals: Temp Pulse Resp BP Pulse Ox 98.5 F 102 H 19 129/84 99 08/08/21 11:29 08/08/21 15:47 08/08/21 11:29 08/08/21 11:29 08/08/21 15:47 Plan Activity: advance as tolerated Weight Bearing Status: Weight Bear as Tolerated Diet: low fat, low salt Additional Instructions: Repeat serum chemistry and CBC in 1 week. Outpatient work-up for anemia and low platelets Follow up with: PRIMARY CAREMD [Primary Care Provider] - 3-5 Days BARTOLO LOCKWOOD MD [Staff Physician] - 7 Days Prescriptions: Magnesium Oxide [Mag-Ox] 400 mg PO QDAY #4 tablet
[2021-08-09] MEDS: BENZONATATE 100 MG CAP PO SCH ×4 (07:01→22:05)
[2021-08-09] MEDS: CETIRIZINE 10 MG TAB PO SCH (10:18)
[2021-08-09] MEDS: oxyCODONE /ACETAMINOPHEN 5-325MG TAB PO PRN (10:18)
[2021-08-09] MEDS: FERROUS SULFATE 325 MG TAB PO SCH (10:19)
[2021-08-09] MEDS: POTASSIUM CHLORIDE ER 10 MEQ TAB PO SCH (10:19)
[2021-08-09] MEDS: MULTIVITAMINS ,THERAPEUTIC TAB PO SCH (10:19)
--- NOTE | 2021-08-09 16:35 | Progress Note ---
Assessment and Plan 50-year-old female past medical history diabetes, hypertension, history of gastric bypass surgery presented to the hospital complaining of weakness, leg edema, difficulty ambulating along with shortness of breath and cough for last [address] abdomen pelvis showed fatty infiltration of the liver, mild lobe pneumonia in the left lung. Patient tested positive for COVID-19. Assessment and plan: -- Pneumonia Likely secondary to COVID-19 +/- bacterial infection Continue IV antibiotics Oxygen supplement if neededpresent patient presently on room air -- COVID-19 virus infection Continue contact airborne isolation for Covid protocol Empiric antibiotic- consults infectious disease Monitor inflammatory markers Encourage the use of incentive spirometer Patient is on room air calm and not in any distress -- MATIAS, likely vasomotor nephropathy -resolved Monitor kidney function Avoid nephrotoxic drugs including nonsteroidal anti-inflammatory agents Renal ultrasoundwe will consult gear keeper if needed Gentle IV hydration -- Hypokalemia Monitor potassium level and replace as needed Check magnesium and phosphate level --Hypomagnesemia, continue to replete -- NSTEMI likely type II Likely secondary to kidney failure -2D echo showed preserved EF Monitor kidney function, serial troponin Consult stoker installation mechanic -- Anemia with thrombocytopenia Monitor H&H Iron and multivitamin supplement Hemoglobin 6.8 today, patient admitted for transfusion -- Bilateral lower extremity edema Questionable cause ?? 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 Consulted cardiology for elevated troponin. 2D echo showed preserved EF. Patient also tested positive for COVID- 19.resting on room air, inflammatory markers slightly elevated. No need for dexamethasone on remdesivir for now as patient on room air. ID following. Follow clinically. 08/05/21: Patient continues to complains of back pain. Hemoglobin dropped to 6.7. Platelets 100 and potassium level 2.9 today. We will stop Heparin, ordered 1 pack RBC. Ordered stool for occult blood. Resting on room air. cardiac consult pending. Continue to follow serial troponin. Replete electrolytes 08/06: Continue to replete magnesium, patient refused blood transfusion yesterday but agreeable for today, continue to monitor H&H. Follow chemistry 08/07/21: H&H stable today, transfused last night. Continue to replete magnesium and follow clinically. Discontinued Lasix, cardiology recommended transfusion if needed for blood pressure control. Continue to follow clinically. If electrolytes stable possible discharge tomorrow. 08/08: 08/08/21: Patient resting on room air, patient remains ambulatory. Completed empiric antibiotics. Cardiology and ID cleared for discharge. Patient was planned for discharged home with outpatient follow-up. Patient was recommended to have outpatient work-up for anemia and thrombocytopenia once she is negative for Covid. She was given replacement for magnesium. Discharge canceled as unable to reach out to family and pending PT eval. Subjective Date of service: 08/08/21 Principal diagnosis: COVID-19 PNA Interval history: Patient seen and examined. Medical records and medication list reviewed. No acute event overnight noted by the RN. Patient denies any difficulty breathing. Patient is tolerating diet. Patient resting on room air Continued complaints of back pain Discussed plan of care at bedside with patient. Objective - Exam Narrative Exam: Limited physical exam due to COVID-19 pandemic to minimize transmission of the disease and to preserve PPE. Vital reviewed and stable. GENERAL: well-developed well-nourished -[place] elderly female lying on bed appeared to be in no discomfort. HEENT: Normocephalic. Atraumatic. NECK: Supple. CHEST/LUNGS: breathing nonlabored. HEART/CARDIOVASCULAR: Heart rate stable on telemetry ABDOMEN: Visibly not distended SKIN: There is no rash NEURO: No focal motor deficit. Follows command. MUSCULOSKELETAL: No joint effusion EXTRIMITY: No swelling, no cyanosis or clubbing. PSYCH: Cooperative. - Constitutional Vitals: Vital Signs - 12hr 08/09/21 11:30 Temperature 98.9 F Pulse Rate 93 H Respiratory 18 Rate Blood Pressure 124/72 O2 Sat by Pulse 97 Oximetry - Labs CBC & Chem 7: 08/07/21 23:24 08/07/21 23:24 HEART Score - HEART Score Troponin: Troponin T 0.024 ng/mL (0.00-0.029) 08/06/21 23:27
[2021-08-09] MEDS: traMADol 50 MG TAB PO PRN (20:10)
[2021-08-10] MEDS: BENZONATATE 100 MG CAP PO SCH ×3 (06:01→22:45)
--- NOTE | 2021-08-10 07:54 | Progress Note ---
Subjective Date of service: 08/10/21 Principal diagnosis: COVID-19 PNA Interval history: 50-year-old female past medical history diabetes, hypertension, history of gastric bypass surgery presented to the hospital complaining of weakness, leg edema, difficulty ambulating along with shortness of breath and cough for last [address] abdomen pelvis showed fatty infiltration of the liver, mild lobe pneumonia in the left lung. Patient tested positive for COVID-19. Objective - Constitutional Vitals: Vital Signs - 12hr 08/09/21 08/09/21 08/10/21 21:08 22:00 05:11 Temperature 99.0 F 98.9 F Pulse Rate 107 H 100 H Pulse Rate [ 107 H Brachial] Respiratory 20 20 22 Rate Blood Pressure 118/77 137/87 O2 Sat by Pulse 99 99 98 Oximetry - Labs CBC & Chem 7: 08/07/21 23:24 08/07/21 23:24 HEART Score - HEART Score Troponin: Troponin T 0.024 ng/mL (0.00-0.029) 08/06/21 23:27
--- NOTE | 2021-08-10 09:10 | Progress Note ---
Assessment and Plan 50-year-old female past medical history diabetes, hypertension, history of gastric bypass surgery presented to the hospital complaining of weakness, leg edema, difficulty ambulating along with shortness of breath and cough for last [address] abdomen pelvis showed fatty infiltration of the liver, mild lobe pneumonia in the left lung. Patient tested positive for COVID-19. Assessment and plan: -- Pneumonia Likely secondary to COVID-19 +/- bacterial infection Continue IV antibiotics Oxygen supplement if neededpresent patient presently on room air -- COVID-19 virus infection Continue contact airborne isolation for Covid protocol Empiric antibiotic- consulted infectious disease Monitor inflammatory markers Encourage the use of incentive spirometer Patient is on room air calm and not in any distress Patient did not qualify for remdesivir as patient remains in room air -- MATIAS, likely vasomotor nephropathy -resolved Monitor kidney function Avoid nephrotoxic drugs including nonsteroidal anti-inflammatory agents Renal ultrasoundwe will consult piano professor if needed Gentle IV hydration -- Hypokalemia Monitor potassium level and replace as needed --Hypomagnesemia, continue to replete -- NSTEMI likely type II Likely secondary to kidney failure -2D echo showed preserved EF Monitor kidney function, serial troponin Consulted gang worker -medical management -- Anemia with thrombocytopenia Monitor H&H Iron and multivitamin supplement Hemoglobin dropped to 6.8, status post 1 unit of packed RBC transfusion Need further work-up for anemia and thrombocytopenia as outpatient when clinically more stable -- Bilateral lower extremity edema Questionable cause ?? 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 Consulted cardiology for elevated troponin. 2D echo showed preserved EF. Patient also tested positive for COVID- 19.resting on room air, inflammatory markers slightly elevated. No need for dexamethasone on remdesivir for now as patient on room air. ID following. Follow clinically. 08/05/21: Patient continues to complains of back pain. Hemoglobin dropped to 6.7. Platelets 100 and potassium level 2.9 today. We will stop Heparin, ordered 1 pack RBC. Ordered stool for occult blood. Resting on room air. cardiac consult pending. Continue to follow serial troponin. Replete electrolytes 08/06: Continue to replete magnesium, patient refused blood transfusion yest erday but agreeable for today, continue to monitor H&H. Follow chemistry 08/07/21: H&H stable today, transfused last night. Continue to replete magnesium and follow clinically. Discontinued Lasix, cardiology recommended transfusion if needed for blood pressure control. Continue to follow [facility]. If electrolytes stable possible discharge tomorrow. 08/08: 08/08/21: Patient resting on room air, patient remains ambulatory. Completed empiric antibiotics. Cardiology and ID cleared for discharge. Patient was planned for discharged home with outpatient follow-up. Patient was recommended to have outpatient work-up for anemia and thrombocytopenia once she is negative for Covid. She was given replacement for magnesium. Discharge canceled as unable to reach out to family and pending PT eval. 08/09: Continue to follow electrolytes. Pending discharge on DME supplies per case management. CM informed me today that patient daughter is refusing to poultry picking machine tender the patient. Multiple social issues. Continue to follow the patient clinically. Completed antibiotics. Subjective Date of service: 08/09/21 Principal diagnosis: COVID-19 PNA Interval history: Patient seen and examined. Medical records and medication list reviewed. No acute event overnight noted by the RN. Patient denies any difficulty breathing. Patient is tolerating diet. Patient resting on room air Continued complaints of back pain Discussed plan of care at bedside with patient. Pending discharge none DME supplies and daughter refused to poultry picking machine tender the patient Objective - Exam Narrative Exam: Limited physical exam due to COVID-19 pandemic to minimize transmission of the disease and to preserve PPE. Vital reviewed and stable. GENERAL: well-developed well-nourished white elderly female lying on bed appeared to be in no discomfort. HEENT: Normocephalic. Atraumatic. NECK: Supple. CHEST/LUNGS: breathing nonlabored. HEART/CARDIOVASCULAR: Heart rate stable on telemetry ABDOMEN: Visibly not distended SKIN: There is no rash NEURO: No focal motor deficit. Follows command. MUSCULOSKELETAL: No joint effusion EXTRIMITY: No swelling, no cyanosis or clubbing. PSYCH: Cooperative. - Constitutional Vitals: Vital Signs - 12hr 08/09/21 08/09/21 08/10/21 21:08 22:00 05:11 Temperature 99.0 F 98.9 F Pulse Rate 107 H 100 H Pulse Rate [ 107 H Brachial] Respiratory 20 20 22 Rate Blood Pressure 118/77 137/87 O2 Sat by Pulse 99 99 98 Oximetry - Labs CBC & Chem 7: 08/07/21 23:24 08/07/21 23:24 HEART Score - HEART Score Troponin: Troponin T 0.024 ng/mL (0.00-0.029) 08/06/21 23:27
--- NOTE | 2021-08-10 09:12 | Event Note ---
Date: 08/09/21 RN called me and informed me that patient is refusing lab work
--- NOTE | 2021-08-10 11:07 | Discharge Summary ---
Providers - Providers Date of Admission: 08/03/21 06:14 Date of discharge: 08/10/21 Attending physician: JOANN TOOR 08/03/21 06:09 Consult to Physician [CONS] Routine Comment: Consulting Provider: SETH WEI Physician Instructions: Reason For Exam: PUI 08/03/21 06:38 Consult to Dietitian/Nutrition [CONS] Routine Physician Instructions: Reason For Exam: Reason for Consult: Severe calorie malnutrition 08/04/21 10:51 Consult to Physician [CONS] Routine Comment: Consulting Provider: SETH WEI Physician Instructions: Reason For Exam: covid positive 08/04/21 16:41 Consult to Physician [CONS] Routine Comment: Consulting Provider: BONY SAUNDERS Physician Instructions: Reason For Exam: elevated troponin with abnormal ekg 08/07/21 09:14 Physical Therapy Evaluation and Treat [CONS] Routine Comment: Reason For Exam: Debility Primary care physician: CLINICAL PSYCHOLOGY PROFESSOR Hospitalization Condition: Stable Hospital course: Patient 50-year-old with a history of hypertension status post gastric bypass surgery. Presented with weakness shortness of breath some dyspnea on exertion low-grade fever. Found to be positive for COVID-19. Patient has CT scan abdomen which showed fatty liver. Also chest x-ray which showed left lower lobe pneumonia. Patient admitted for Covid pneumonia. Defervesced well. Patient was satting 97% on room air. Calm. No cough. Stable for discharge. Hospital course was complicated by elevated troponin. Patient had echocardiogram which showed preserved ejection fraction. Patient also was anemic and was transfused 1 unit packed red blood cells tolerated well. Patient has been okayed to go home with daughter with physical therapy. Disposition: 01 HOME / SELF CARE / HOMELESS Final Discharge Diagnosis (Prints w/discharge instructions): COVID-19 pneumonia - Discharge Diagnoses (1) Acute heart failure with preserved ejection fraction (HFpEF) Status: Ruled-out Comment: Heart failure ruled out. Patient had preserved normal ejection fraction. No blood pressure elevation. Ruled out for CHF. (2) Anemia Status: Acute Comment: Stable patient tolerated transfusion 1 unit packed red blood cell well. (3) Bilateral lower extremity edema Status: Acute (4) COVID-19 virus infection Status: Acute Comment: Patient did not require remdesivir or prednisone secondary to doing well on room air. Stable for discharge. (5) Elevated troponin Status: Acute Comment: Secondary to prerenal azotemia. Work-up unremarkable. No evidence of CHF. Renal function resolved. (6) Pneumonia due to COVID-19 virus Status: Acute (7) Tobacco use Status: Chronic Comment: Smoking cessation. Core Measure Documentation - Palliative Care Palliative Care/ Comfort Measures: Not Applicable - Core Measures Any of the following diagnoses?: none Exam - Constitutional Vitals: Temp Pulse Resp BP Pulse Ox 98.9 F 100 H 22 137/87 98 08/10/21 05:11 08/10/21 05:11 08/10/21 05:11 08/10/21 05:08/10/21 05:11 General appearance: Present: no acute distress, well-nourished - EENT Eyes: Present: PERRL ENT: hearing intact, clear oral mucosa - Neck Neck: Present: supple, normal ROM - Respiratory Respiratory effort: normal Respiratory: bilateral: CTA - Cardiovascular Heart Sounds: Present: S1 & S2. Absent: rub, click - Extremities Extremities: pulses symmetrical, No edema Peripheral Pulses: within normal limits - Abdominal General gastrointestinal: Present: soft, non-tender, non-distended, normal bowel sounds Female genitourinary: Present: normal - Integumentary Integumentary: Present: clear, warm, dry - Musculoskeletal Musculoskeletal: gait normal, strength equal bilaterally - Psychiatric Psychiatric: appropriate mood/affect, intact judgment & insight - Neurologic Neurologic: CNII-XII intact, moves all extremities Plan Activity: no restrictions, advance as tolerated Weight Bearing Status: Full Weight Bearing Diet: low cholesterol, low salt Special Instructions: no heavy lifting, physical therapy, home health RN Follow up with: NELI OLEARY MD [Primary Care Provider] - 3-5 Days BARTOLO LOCKWOOD MD [Staff Physician] - 7 Days Prescriptions: Magnesium Oxide [Mag-Ox] 400 mg PO QDAY #4 tablet Benzonatate [Tessalon Perles] 100 mg PO Q8HR #30 capsule traMADoL [Ultram 50 MG tab] 50 mg PO Q6HR PRN #20 tablet PRN Reason: Pain, Moderate (4-6) Cetirizine HCl [Zyrtec 10mg tab] 10 mg PO DAILY #30 tablet
[2021-08-10] MEDS: CETIRIZINE 10 MG TAB PO SCH (12:16)
[2021-08-10] MEDS: FERROUS SULFATE 325 MG TAB PO SCH (12:16)
[2021-08-10] MEDS: traMADol 50 MG TAB PO PRN (12:16)
[2021-08-10] MEDS: MULTIVITAMINS ,THERAPEUTIC TAB PO SCH (12:17)
[2021-08-10] MEDS: POTASSIUM CHLORIDE ER 10 MEQ TAB PO SCH (12:17)
[2021-08-11 04:58] VITALS: BP 110/70
[2021-08-11] MEDS: BENZONATATE 100 MG CAP PO SCH (05:28)
[2021-08-11] MEDS: CETIRIZINE 10 MG TAB PO SCH (10:37)
[2021-08-11] MEDS: FERROUS SULFATE 325 MG TAB PO SCH (10:37)
[2021-08-11] MEDS: MULTIVITAMINS ,THERAPEUTIC TAB PO SCH (10:37)
[2021-08-11] MEDS: POTASSIUM CHLORIDE ER 10 MEQ TAB PO SCH (10:38)
--- NOTE | 2021-08-11 11:09 | Discharge Summary ---
Providers - Providers Date of Admission: 08/03/21 06:14 Date of discharge: 08/11/21 Attending physician: JOANN TORO 08/03/21 06:09 Consult to Physician [CONS] Routine Comment: Consulting Provider: SETH WEI Physician Instructions: Reason For Exam: PUI 08/03/21 06:38 Consult to Dietitian/Nutrition [CONS] Routine Physician Instructions: Reason For Exam: Reason for Consult: Severe calorie malnutrition 08/04/21 10:51 Consult to Physician [CONS] Routine Comment: Consulting Provider: SETH WEI Physician Instructions: Reason For Exam: covid positive 08/04/21 16:41 Consult to Physician [CONS] Routine Comment: Consulting Provider: BONY SAUNDERS Physician Instructions: Reason For Exam: elevated troponin with abnormal ekg 08/07/21 09:14 Physical Therapy Evaluation and Treat [CONS] Routine Comment: Reason For Exam: Debility Primary care physician: LABORER [employer]ARM Hospitalization Condition: Stable Disposition: 01 HOME / SELF CARE / HOMELESS Final Discharge Diagnosis (Prints w/discharge instructions): . COVID-19 positive test (U07.1, COVID-19) with Acute Pneumonia (J12.89, Other viral pneumonia). (If respiratory failure or sepsis present, add as separate assessment). . - Discharge Diagnoses (1) Acute heart failure with preserved ejection fraction (HFpEF) Status: Ruled-out Comment: Heart failure ruled out. Patient had preserved normal ejection fraction. No blood pressure elevation. Ruled out for CHF. (2) Anemia Status: Acute Comment: Stable patient tolerated transfusion 1 unit packed red blood cell well. (3) Bilateral lower extremity edema Status: Acute (4) COVID-19 virus infection Status: Acute Comment: Patient did not require remdesivir or prednisone secondary to doing well on room air. Stable for discharge. (5) Elevated troponin Status: Acute Comment: Secondary to prerenal azotemia. Work-up unremarkable. No evidence of CHF. Renal function resolved. (6) Pneumonia due to COVID-19 virus Status: Acute (7) Tobacco use Status: Chronic Comment: Smoking cessation. Core Measure Documentation - Palliative Care Palliative Care/ Comfort Measures: Not Applicable - Core Measures Any of the following diagnoses?: none Exam - Constitutional Vitals: Temp Pulse Resp BP Pulse Ox 99.2 F 87 16 110/70 99 08/11/21 04:57 08/11/21 04:57 08/11/21 04:57 08/11/21 04:57 08/11/21 04:57 General appearance: Present: no acute distress, well-nourished - EENT Eyes: Present: PERRL ENT: hearing intact, clear oral mucosa - Neck Neck: Present: supple, normal ROM - Respiratory Respiratory effort: normal Respiratory: bilateral: CTA - Cardiovascular Heart Sounds: Present: S1 & S2. Absent: rub, click - Extremities Extremities: pulses symmetrical, No edema Peripheral Pulses: within normal limits - Abdominal General gastrointestinal: Present: soft, non-tender, non-distended, normal bowel sounds Female genitourinary: Present: normal - Integumentary Integumentary: Present: clear, warm, dry - Musculoskeletal Musculoskeletal: gait normal, strength equal bilaterally - Psychiatric Psychiatric: appropriate mood/affect, intact judgment & insight - Neurologic Neurologic: CNII-XII intact, moves all extremities Plan Follow up with: PRIMARY MD ANIRUDH [Primary Care Provider] - 3-5 Days BARTOLO LOCKWOOD MD [Staff Physician] - 7 Days Prescriptions: Magnesium Oxide [Mag-Ox] 400 mg PO QDAY #4 tablet Benzonatate [Tessalon Perles] 100 mg PO Q8HR #30 capsule traMADoL [Ultram 50 MG tab] 50 mg PO Q6HR PRN #20 tablet PRN Reason: Pain, Moderate (4-6) Cetirizine HCl [Zyrtec 10mg tab] 10 mg PO DAILY #30 tablet
== END 2021-08-11 11:50 | disposition home health service (06) | DRG 177 ==
LOC: ED 18:26 → 3A 08-03 06:14
PROVIDERS: ADMIT Internal Medicine Geriatric Medicine; ATTEND Internal Medicine
PROC: 30233N1 Transfusion of Nonautologous Red Blood Cells into Peripheral Vein, Percutaneous Approach (ICD-10-PCS; principal; 2021-08-07)
DX: U07.1 COVID-19 (principal); E43 Unspecified severe protein-calorie malnutrition; I21.4 Non-ST elevation (NSTEMI) myocardial infarction; N04.9 Nephrotic syndrome with unspecified morphologic changes; E87.6 Hypokalemia; D64.9 Anemia, unspecified; J12.82 Pneumonia due to coronavirus disease 2019; E11.9 Type 2 diabetes mellitus without complications; J45.909 Unspecified asthma, uncomplicated; Z79.899 Other long term (current) drug therapy; E66.9 Obesity, unspecified; Z68.29 Body mass index [BMI] 29.0-29.9, adult; Z71.6 Tobacco abuse counseling; Z98.84 Bariatric surgery status; G89.4 Chronic pain syndrome; F17.200 Nicotine dependence, unspecified, uncomplicated; D69.6 Thrombocytopenia, unspecified; E83.42 Hypomagnesemia; I10 Essential (primary) hypertension; N17.9 Acute kidney failure, unspecified
CPT/HCPCS: 36415; 70450; 71045; 74176; 76770; 80048; 80053; 80061; 81001; 82728; 83520; 83615; 83690; 83735; 83880; 83935; 84100; 84132; 84145; 84300; 84484; 85014; 85018; 85025; 85027; 85379; 86140; 86850; 86900; 86901; 86920; 87040; 93005; 93306; 93970; G0378; J0456; J0696; J1644; J1940; J2270; J2405; J2916; J3475; J7030; J7040; P9016; U0003